=== PATIENT | male | born 1950 | race Caucasian/White ===

== ENCOUNTER 2016-12-23 18:19 | Outpatient (CLI) | payer MEDICARE, OTHER ==
[~2016-12-23] VITALS: Ht 175.3 cm; Wt 102.7 kg
[2016-12-23] MEDS ORDERED: NORMAL SALINE 500 ML IV SCH (18:24)
[2016-12-23] MEDS ORDERED: ACETAMINOPHEN 325 MG TABLET PO ONE (18:30)
[2016-12-23] MEDS ORDERED: DiphenhydrAMINE 25 MG CAPSULE PO ONE (18:30)
[2016-12-23 18:56] VITALS: Ht 175.3 cm; Wt 102.7 kg
--- NOTE | 2016-12-24 00:07 | NUR ---
DISMISSAL BLOOD TRANSFUSION COMPLETED WITH NO REACTION NOTED. IV WAS REMOVED WITH CATHETER TIP INTACT, AND SITE GAUZE AND COBAN WERE APPLIED TO SITE. PATIENT WAS ESCORTED VIA HOSPITAL MOTORIZED SCOOTER TO ED DOORS WHERE PATIENT AMBULATED WITH A STEADY GAIT USING HIS CANE TO HIS 'S PRIVATE VEHICLE.
== END 2016-12-24 00:10 | disposition home or self-care (01) ==
LOC: BLDTRN 18:19
PROVIDERS: ATTEND Internal Medicine Medical Oncology
DX: D64.9 Anemia, unspecified (principal)
CPT/HCPCS: 36415; 36430; 86850; 86900; 86901; 86922; A9270; P9040

== ENCOUNTER → 2016-12-23 | Outpatient (CLI) | payer MEDICARE, OTHER ==
[2016-12-23 17:40] LABS: BASOPHILS # (AUTO) 0.1 T/MM3 (0-0.2); BASOPHILS % (AUTO) 1.3 % (0-2); EOSINOPHILS # (AUTO) 0.1 T/MM3 (0-0.5); EOSINOPHILS % (AUTO) 0.9 % (0-4); HCT - HEMATOCRIT 24.9 % (41-53); HGB - HEMOGLOBIN 8.1 GM/DL (13.5-17.5); IMMATURE GRANULOCYTE # (AUTO) 0.06 T/MM3 (0.00-0.03); IMMATURE GRANULOCYTE % (AUTO) 0.6 % (0.0-0.5); LYMPHOCYTES # (AUTO) 1.3 T/MM3 (1-4.8); LYMPHOCYTES % (AUTO) 14.2 % (23-45); MEAN CORPUSCULAR HGB 28.7 UUG (26-34); MEAN CORPUSCULAR HGB CONC(MCHC 32.5 GM/DL (31-37); MEAN CORPUSCULAR VOLUME 88.3 UM3 (80-100); MEAN PLATELET VOLUME 9.1 UM3 (9.4-12.4); MONOCYTES # (AUTO) 0.8 T/MM3 (0-0.8); MONOCYTES % (AUTO) 8.9 % (0-9.0); NEUTROPHILS #(AUTO)-ABSOLUTE 6.9 T/MM3 (1.8-7.7); NEUTROPHILS % (AUTO) 74.1 % (33-66); RED BLOOD COUNT 2.82 M/MM3 (4.50-5.90); WBC - WHITE BLOOD COUNT 9.3 T/MM3 (4.5-11.0)
[2016-12-23 17:57] LABS: ALBUMIN 3.6 G/DL (3.5-5.0); ALBUMIN/GLOBULIN RATIO 1.2 RATIO (1.1-2.2); ALKALINE PHOSPHATASE 123 U/L (38-126); ALT (SGPT) 36 U/L (21-72); ANION GAP 14 MEQ/L (5-15); AST (SGOT) 38 U/L (17-59); BUN/CREATININE RATIO 23 RATIO (6-26); CALCIUM 9.5 MG/DL (8.4-10.2); CHLORIDE 99 MEQ/L (98-107); CO2 - CARBON DIOXIDE 25 MEQ/L (22-30); CREATININE 0.7 MG/DL (0.8-1.5); GLOMERULAR FILTRATION RATE 113; GLUCOSE 112 MG/DL (75-110); POTASSIUM 3.8 MEQ/L (3.6-5); SODIUM 138 MEQ/L (134-144); TOTAL PROTEIN 6.7 G/DL (6.3-8.2)
== END ==
LOC: LAB 17:26
PROVIDERS: ATTEND Internal Medicine Medical Oncology
DX: C34.11 Malignant neoplasm of upper lobe, right bronchus or lung (principal); R06.02 Shortness of breath
CPT/HCPCS: 36415; 80053; 82378; 85025

== ENCOUNTER → 2016-12-25 | Outpatient (CLI) | payer MEDICARE, OTHER ==
[~2016-12-25] MED LIST: ACET-2321 PO; ALBU8.5H INH; DEXA4TAB PO; DULO30CA52 PO; HYDR-4072 PO; MELO-267 PO; METH500T6 PO; RANI150T7 PO; ROPI2TAB2 PO; TAMS0.4C47 PO
--- NOTE | 2016-12-25 12:25 | DI ---
Indication: ITS.REASON: C34.11 LUNG CA; C79.51 BONE METS PROCEDURE: PET/CT SKULL TO THIGH/INITIAL: Encounter: Initial Comparison: None Technique: 14.8 mCi of F-18 FDG was administered intravenously via the right antecubital fossa. Approximately 60 minutes later 3D PET/CT imaging was performed from the skull base through the mid thighs. The CT images are for attenuation correction purposes only. Findings: No areas of abnormal tracer uptake within the skull base. There are scattered areas of intramuscular uptake of uncertain etiology. Hypermetabolic right upper lobe area of mass and associated consolidation with groundglass opacity is seen with an SUV max of 5.1. There is associated FDG avid mediastinal adenopathy. There is atelectasis of the right lower lobe and small right pleural effusion. No FDG avid masses seen within the left lung. Small to moderate pericardial effusion. Subcarinal adenopathy as well. Expected myocardial uptake. Metastasis involving the anterior left lobe of the liver with an SUV max of 6.7 seen at location -886.5. No additional discrete liver masses seen. There is mild heterogeneity of liver uptake diffusely. Uptake within the nodular left adrenal gland with an SUV max of 5.4. Expected genitourinary and bowel uptake. Small volume ascites. There is omental thickening with small omental metastatic implants seen in the ventral abdomen with mild FDG uptake. There are areas of abnormal skeletal uptake seen including the left intertrochanteric femur and acetabulum. Uptake in both pubic rami and right acetabular region. Diffuse uptake sacrum. Scattered areas of vertebral uptake throughout the spine. There is also uptake in the right glenoid and right humerus. Impression: 1. Widespread metastatic disease involving the mediastinum, skeleton, left adrenal and liver with peritoneal metastases and presumably malignant ascites. 2. Scattered areas of intramuscular uptake could be due to intramuscular metastases or possibly insulin. .
== END ==
LOC: IMA 09:04
PROVIDERS: ATTEND Internal Medicine Medical Oncology
DX: C34.11 Malignant neoplasm of upper lobe, right bronchus or lung (principal); C79.51 Secondary malignant neoplasm of bone; C78.1 Secondary malignant neoplasm of mediastinum; C78.7 Secondary malignant neoplasm of liver and intrahepatic bile duct; C79.72 Secondary malignant neoplasm of left adrenal gland; C78.6 Secondary malignant neoplasm of retroperitoneum and peritoneum
CPT/HCPCS: 78815; A9552

== ENCOUNTER 2016-12-30 12:52 | Inpatient (IN) | payer MEDICARE, OTHER ==
[~2016-12-30] VITALS: Ht 175.3 cm; Wt 98.3 kg
--- OUTSIDE RECORDS SUMMARY | 2016-12-30 12:57 | XMS REPORT | Continuity of Care Document ---
Author Author [facility] Organization [facility] Address Unknown Phone Unavailable Allergies Active Description Code Type Severity Reaction Onset Reported/Identified Relationship to Patient Clinical Status Yes No Known Allergies NKA Miscellaneous Allergy Unknown N/A 05/27/2015 Medications Problems Date Dx Coded Attending Type Code Diagnosis Diagnosed By 05/27/2015 Jamar Barry 162.3 05/27/2015 Jamar Barry 512.1 05/27/2015 Jamar Barry 786.6 05/27/2015 Jamar Barry E878.8 06/17/2015 Narendra London Z53.8 06/27/2015 Narendra London C34.90 06/27/2015 Narendra London R06.00 07/16/2015 Narendra London C34.90 07/16/2015 Narendra London R06.00 07/23/2015 Narendra London C34.90 07/23/2015 Narendra London R06.00 Procedures Results Encounters ACCT No. Visit Date/Time Discharge Status Pt. Type Provider Facility Loc./Unit Complaint [id number] 05/22/2015 17:14:00 05/22/2015 23 :59:59 CLS Outpatient
--- OUTSIDE RECORDS SUMMARY | 2016-12-30 12:57 | XMS REPORT | Continuity of Care Document ---
Author Author [facility] Organization [facility] Address Unknown Phone Unavailable Care Team Providers Care Elementary Secretary Name Role Phone [employer] [facility] Primary Care Physician [phone] Source Comments Some departments are not documenting in the electronic medical record. If you do not see the information that you expected, contact Release of Information in the Health Information Management department at [phone] for further assistance in locating additional records.[facility] Active Allergies and Adverse Reactions Allergen Noted Date Severity Reactions Comments Iodine 12/29/2011 SEE COMMENTS Lower body burning Iodine to contrast Current Medications Prescription Sig. Disp. Refills Start End Date Status Date atenolol (TENORMIN) 50 mg Take 50 mg by mouth Active tablet daily. atorvastatin (LIPITOR) 40 Take 40 mg by mouth at Active mg tablet bedtime daily. gabapentin (NEURONTIN) Take 300 mg by mouth Active 300 mg capsule twice daily. fentaNYL (DURAGESIC) 50 Apply 1 Patch to top of Active mcg/hr patch skin as directed every 72 hours. Active Problems Problem Noted Date Dysphagia, pharyngoesophageal phase 12/29/2011 Laryngopharyngeal reflux 12/29/2011 Social History Tobacco Use Types Packs/Day Years Used Date Current Every Day Smoker Cigarettes 1 50 Tobacco Cessation: Ready to Quit: No Comments: Alcohol Use Drinks/Week oz/Week Comments No Last Filed Vital Signs Vital Sign Reading Time Taken Blood Pressure 113/74 02/05/2012 12:45 PM CDT Pulse 60 02/05/2012 12:45 PM CDT Temperature 36.7 C (98.1 F) 02/05/2012 12:45 PM CDT Respiratory Rate - - Height 1.778 m (5' 10") 02/05/2012 12:45 PM CDT Weight 99.4 kg (219 lb 2.2 oz) 02/05/2012 12:45 PM CDT Body Mass Index 31.44 02/05/2012 12:45 PM CDT Oxygen Saturation 95% 02/05/2012 12:45 PM CDT Plan of Care Health Maintenance Due Date Last Done Comments Hepatitis C Screening 1950 Physical (Comprehensive) 1957 Exam Pertussis Vaccine 1961 Tetanus Vaccine 1967 Colorectal Cancer 01/08/2000 Screening Shingles Vaccine 2010 Abdominal Aortic Aneurysm 2015 Screening Prevnar/Pneumovax (#1) 2015 Influenza Vaccine 05/14/2017 Results from Last 3 Months Not on file
--- NOTE | 2016-12-30 13:00 | NUR ---
Arrival Patient arrived on unit at this time, accompanied by and grandson. Patient moved self from wheelchair to bed with minimal assistance. Patient oriented to unit. Will continue to monitor.
[2016-12-30 13:17] VITALS: Ht 175.3 cm; Wt 98.3 kg
[2016-12-30 13:20] VITALS: BP 136/77; PULSE 90; RESP 18; TEMP 96.7; O2SAT 90
[2016-12-30] MEDS ORDERED: ROPI2TAB2 PO (13:27)
[2016-12-30 13:28] VITALS: RESP 22
[2016-12-30 14:39] LABS: BASOPHILS # (AUTO) 0.2 T/MM3 (0-0.2); BASOPHILS % (AUTO) 1.9 % (0-2); EOSINOPHILS # (AUTO) 0.1 T/MM3 (0-0.5); HCT - HEMATOCRIT 28.1 % (41-53); HGB - HEMOGLOBIN 8.7 GM/DL (13.5-17.5); IMMATURE GRANULOCYTE # (AUTO) 0.06 T/MM3 (0.00-0.03); IMMATURE GRANULOCYTE % (AUTO) 0.6 % (0.0-0.5); LYMPHOCYTES # (AUTO) 1.2 T/MM3 (1-4.8); LYMPHOCYTES % (AUTO) 12.4 % (23-45); MEAN CORPUSCULAR HGB 27.2 UUG (26-34); MEAN CORPUSCULAR VOLUME 87.8 UM3 (80-100); MEAN PLATELET VOLUME 9.7 UM3 (9.4-12.4); MONOCYTES # (AUTO) 0.8 T/MM3 (0-0.8); MONOCYTES % (AUTO) 7.8 % (0-9.0); NEUTROPHILS #(AUTO)-ABSOLUTE 7.4 T/MM3 (1.8-7.7); NEUTROPHILS % (AUTO) 76.3 % (33-66); WBC - WHITE BLOOD COUNT 9.6 T/MM3 (4.5-11.0)
[2016-12-30] MEDS: ROPINIROLE 2 MG TABLET PO PRN (14:40)
--- NOTE | 2016-12-30 14:45 | DI ---
Indication: ITS.REASON: hypoxia, pleural effusion, lung ca PROCEDURE: CHEST 1 VIEW: Encounter: Initial Comparison: PET/CT dated December 25, 2016 Findings: Increasing moderate right pleural effusion. Hazy consolidation in the right lung, some of which relates to the known lung mass while other areas could be due to a superimposed pneumonia, atelectasis or aspiration. No pneumothorax. Left lung is clear. Heart size is obscured by the right effusion. Mediastinal contours are grossly normal. Pulmonary vascularity appears normal on the left. Impression: Increasing moderate right effusion. Superimposed atelectasis, pneumonia or aspiration cannot be excluded. .
[2016-12-30 14:48] LABS: ALBUMIN 3.2 G/DL (3.5-5.0); ALBUMIN/GLOBULIN RATIO 1.1 RATIO (1.1-2.2); ALKALINE PHOSPHATASE 168 U/L (38-126); ALT (SGPT) 65 U/L (21-72); ANION GAP 11 MEQ/L (5-15); AST (SGOT) 70 U/L (17-59); BUN/CREATININE RATIO 27 RATIO (6-26); CALCIUM 9.9 MG/DL (8.4-10.2); CHLORIDE 102 MEQ/L (98-107); CO2 - CARBON DIOXIDE 29 MEQ/L (22-30); CREATININE 0.9 MG/DL (0.8-1.5); GLOMERULAR FILTRATION RATE 84; GLUCOSE 122 MG/DL (75-110); POTASSIUM 3.8 MEQ/L (3.6-5); SODIUM 142 MEQ/L (134-144)
[2016-12-30] MEDS ORDERED: ACET-2321 PO (15:18)
[2016-12-30] MEDS ORDERED: MELO-267 PO (15:18)
[2016-12-30] MEDS ORDERED: DULO30CA52 PO (15:18)
[2016-12-30] MEDS ORDERED: ALBU8.5H INH (15:18)
[2016-12-30] MEDS ORDERED: METH500T6 PO (15:18)
[2016-12-30] MEDS ORDERED: TAMS0.4C47 PO (15:18)
--- NOTE | 2016-12-30 15:36 | HPPDOC ---
DIVINE VALDEZ V HAND WASHER 12/30/16 1521: HPI - Adult Date DATE: 12/30/16 TIME: 15:12 General Chief Complaint: Weakness, Shortness of breath, Anemia History of Present Illness Kenn is a pleasant 66 yr old male with known Lung cancer widespread metastatic disease. He has done all of his primary care management at [facility] in [place], however, he resides in [place], [place]. He was hospitalized at [facility] last month in November for Pneumonia and was found to have lung cancer. He does report that his primary care provider at [facility] has been watching a "spot" on his lung for numerous years, however, he has never had a biopsy until last month. While at [facility] he underwent a thoracentesis and had 1 liter drained off. He was discharged to follow-up with Dr. Miranda for further oncology evaluation and treatment. Patient reports he did see Dr. Miranda last week 12/23 and was found to be in anemic with hemoglobin of 8.1. At that time he received a blood transfusion. On 12/25 an outpatient PET scan was performed showing widespread metastatic disease involving the following, mediastinum, skeleton, left adrenal and liver with peritoneal metastasis and probable malignant ascites. He contacted Dr Dawson office today to report increased shortness of breath and weakness. The hospitalist services were contacted and accepted patient for direct admission for further evaluation and treatment. Past Medical History Past Medical History Metastatic lung cancer HTN "questionable" Coronary artery disease Chronic tobacco dependence History of significant chest trauma with pneumothorax, Right scapula fx Surgical History Patient's Surgical History: Right knee replacement Tonsillectomy Cardiac catheter- Current Medications Home Meds Reported Medications Tamsulosin HCl (Tamsulosin HCl) 0.4 Mg Cap.er.24h, 0.4 MG PO HS, CAP Take 1 capsule, by mouth, 1 time a day (at BEDTIME). 12/30/16 Methocarbamol (Methocarbamol) 500 Mg Tablet, 1 TAB PO QID 12/30/16 Meloxicam (Meloxicam) 15 Mg Tablet, 15 MG PO DAILY, TAB 12/30/16 Duloxetine HCl (Duloxetine HCl) 30 Mg Capsule.dr, 1 CAP PO BID, CAP 12/30/16 Albuterol Sulfate (Proair HFA 90 mcg/actuation) 8.5 Gm Hfa.aer.ad, 2 PUFF INH Q8H, INHALER 12/30/16 Acetaminophen (Tylenol) 325 Mg Tablet, 1-2 TAB PO QID, #60 TAB 2 Refills 12/30/16 Ropinirole HCl (Requip) 2 Mg Tablet, 2 MG PO TID Y for PRN ORDERS, TAB Take 1 tablet, by mouth, 3 times a day. 12/30/16 Allergies: Coded Allergies: No Known Allergies (Unverified , 12/30/16) Family History Family History: unknown Social History Smoking Status: Current every day smoker Substance Use Type: does not use Alcohol Intake: occasionally Marital Status: Sexuality: female partner Housing: house Current Occupational Status: retired () Advance Directives: Yes DPOA for Healthcare Only (Mishel Jones, ) Social History Comments Primary he care provider at [facility] in [place], [place] Oncology Dr. Miranda Review of Systems Constitutional: REPORTS: fatigue, weakness Cardiovascular dyspnea on exertion, paroxysmal nocturnal dysp Pulmonary Respiratory: cough, dyspnea, tachypnea Musculoskeletal General: pain (left hip pain) Physical Exam General General Nourishment: well nourished, well developed Vital Signs Vital Signs Date Time Temp Pulse Resp B/P Pulse Ox O2 Delivery O2 Flow Rate FiO2 12/30/16 13:28 22 12/30/16 13:20 96.7 90 136/77 90 Room Air Height (Feet): 5 Height (Inches): 9.00 Eyes Brief: FOUND: EOMI, PERRL ENMT Brief: FOUND: mucosa moist Neck Brief: FOUND: midline, NOT FOUND: adenopathy, carotid bruits, tracheal deviation Comments Course breath sounds Cardiovascular (brief) Cardiac Brief: FOUND: pedal edema (trace bilateral lower extremity), regular rate, regular rhythm, NOT FOUND: murmur Abdomen (brief) Abdominal Brief: FOUND: BS normo active x4, soft, NOT FOUND: distended, tender Neurologic (brief) Neurological Brief: FOUND: cranial 2-12 intact, motor (strength equal bilaterally 4 extremities), sensory (sensory intact all 4 extremities) Neurologic RN Documented GCS Eye Opening: Verbal: Motor: Total: Psychiatric (brief) FOUND: alert, attentive, normal affect, oriented Laboratory Laboratory Tests Test 12/30/16 14:19 White Blood Count 9.6T/MM3 Red Blood Count 3.20M/MM3 Hemoglobin 8.7GM/DL Hematocrit 28.1% Mean Corpuscular Volume 87.8UM3 Mean Corpuscular Hemoglobin 27.2UUG Mean Corpuscular Hemoglobin Concent 31.0GM/DL RDW Standard Deviation 54.7FL Platelet Count 364T/MM3 Mean Platelet Volume 9.7UM3 Immature Granulocyte % (Auto) 0.6% Neutrophils (%) (Auto) 76.3% Lymphocytes (%) (Auto) 12.4% Monocytes (%) (Auto) 7.8% Eosinophils (%) (Auto) 1.0% Basophils (%) (Auto) 1.9% Absolute Immature Granulocyte (auto 0.06T/MM3 Absolute Neutrophils (auto) 7.4T/MM3 Absolute Lymphocytes (auto) 1.2T/MM3 Absolute Monocytes (auto) 0.8T/MM3 Absolute Eosinophils (auto) 0.1T/MM3 Absolute Basophils (auto) 0.2T/MM3 Turbidity < 20 Sodium Level 142MEQ/L Potassium Level 3.8MEQ/L Chloride Level 102MEQ/L Carbon Dioxide Level 29MEQ/L Anion Gap 11MEQ/L Blood Urea Nitrogen 24.0MG/DL Creatinine 0.9MG/DL Glomerular Filtration Rate Calc 84 BUN/Creatinine Ratio 27RATIO Glucose Level 122MG/DL Calculated Osmolality 278MOSM/KG Calcium Level 9.9MG/DL Total Bilirubin 0.90MG/DL Icterus Index < 2 Aspartate Amino Transf (AST/SGOT) 70U/L Alanine Aminotransferase (ALT/SGPT) 65U/L Alkaline Phosphatase 168U/L Total Protein 6.0G/DL Albumin 3.2G/DL Globulin 2.8G/DL Albumin/Globulin Ratio 1.1RATIO Chemistry Specimen Hemolysis < 15 Assessment & Plan Problems: (1) Lung cancer Status: Acute Qualifiers: Lung location: unspecified part of lung (2) Metastatic bone tumor Status: Acute (3) Hypertension Status: Chronic (4) Tobacco dependence Status: Chronic Plan/Intensity of Service Patient to outpatient observation under the care of Dr. Payne for dyspnea, weakness Obtain the following laboratory studies on admission. CBC, CMP, urinalysis. Will obtain a 2 view chest x-ray to evaluate for effusion Oxygen saturation is borderline. However, patient does become moderately distressed with conversational dyspnea. Oxygen as needed to maintain adequate saturations greater than 92% With consultation to Dr. Miranda for further oncology evaluation and treatment. Patient does verbalize his wish to proceed with chemotherapy treatment or whatever recommendation as per oncology team. Half-normal saline at 100 ML per hour for gentle hydration. Patient may be up in room with assistance. Patient may have regular diet. SCDs to bilateral lower extremity for DVT prophylaxis Will discuss further plan of care with attending, Dr. Payne At time of discharge medical care will return to primary care provider at [facility] Code Status Hospital Course Summary Disclaimer The hospital course summary below is not to be considered part of the above Progress Note. Hospital Course Summary Patient to outpatient observation under the care of Dr. Payne for dyspnea, weakness Obtain the following laboratory studies on admission. CBC, CMP, urinalysis. Will obtain a 2 view chest x-ray to evaluate for effusion Oxygen saturation is borderline. However, patient does become moderately distressed with conversational dyspnea. Oxygen as needed to maintain adequate saturations greater than 92% With consultation to Dr. Miranda for further oncology evaluation and treatment. Patient does verbalize his wish to proceed with chemotherapy treatment or whatever recommendation as per oncology team. Half-normal saline at 100 ML per hour for gentle hydration. Patient may be up in room with assistance. Patient may have regular diet. SCDs to bilateral lower extremity for DVT prophylaxis Will discuss further plan of care with attending, Dr. Payne At time of discharge medical care will return to primary care provider at [facility] ABRAM,ESME Singh MD 12/30/16 0764: Past Medical History Current Medications Home Meds Reported Medications Tamsulosin HCl (Tamsulosin HCl) 0.4 Mg Cap.er.24h, 0.4 MG PO HS, CAP Take 1 capsule, by mouth, 1 time a day (at BEDTIME). 12/30/16 Methocarbamol (Methocarbamol) 500 Mg Tablet, 1 TAB PO QID 12/30/16 Meloxicam (Meloxicam) 15 Mg Tablet, 15 MG PO DAILY, TAB 12/30/16 Duloxetine HCl (Duloxetine HCl) 30 Mg Capsule.dr, 1 CAP PO BID, CAP 12/30/16 Albuterol Sulfate (Proair HFA 90 mcg/actuation) 8.5 Gm Hfa.aer.ad, 2 PUFF INH Q8H, INHALER 12/30/16 Acetaminophen (Tylenol) 325 Mg Tablet, 1-2 TAB PO QID, #60 TAB 2 Refills 12/30/16 Ropinirole HCl (Requip) 2 Mg Tablet, 2 MG PO TID Y for PRN ORDERS, TAB Take 1 tablet, by mouth, 3 times a day. 12/30/16 Allergies: Coded Allergies: No Known Allergies (Unverified , 12/30/16) Assessment & Plan Problems: (1) Dyspnea on exertion Status: Acute Assessment & Plan: Exertion limited to 5-10 steps (2) Lung cancer Status: Acute Qualifiers: Lung location: unspecified part of lung Assessment & Plan: Widely metastatic per verbal report Dr. Miranda-bone, liver, soft tissues (3) Metastatic bone tumor Status: Acute (4) Pleural effusion on right Status: Acute Assessment & Plan: Malignant (5) Restless leg syndrome (6) Hypertension Status: Chronic (7) Tobacco dependence Status: Chronic (8) Chronic back pain Status: Chronic Assessment & Plan: Related to service injury Assessment I have independently evaluated and examined this patient. I reviewed the chart, the patient's history, and the HAND WASHER's documented findings as above. We discussed and formulated the assessment and plan as above with additions as below: Mr. 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 He underwent thoracentesis of the right lung which provided very brief improvement in dyspnea. Thoracentesis was done 12 days ago and in the intervening time the patient has developed profound exertional dyspnea with exercise tolerance limited to 5-10 steps due to inability to breathe, dizziness, and hyperventilation. He's become wheelchair bound in the past week due to dyspnea. He was discharged home on oxygen and monitors his oxygen level reporting that it ranges from 84-96% on 4 L. Breathing treatments provided no improvement in symptoms and he denies fever or cough. Prior to 6 weeks ago the patient reports no difficulty with his breathing. The patient is appears dyspneic speaking and had to pause occasionally to recover before continuing history. He is alert and fully oriented. Cardiac rhythm is regular. Left lung field is clear, there is no bilateral wheezing, the right lung is dull to percussion 1[address] posteriorly and has diminished breath sounds the lower 2/3s of the lung. Liver is enlarged and approximate 2 finger breaths below the right costal margin , margin is tender. Patient moves all extremities well, sensation is intact 4. PA and lateral chest x-rays been reviewed by myself demonstrating moderate right pleural effusion and right upper lobe mass. Urine specific gravity is elevated suggesting dehydration, CPK [address] Miranda. Anticipate repeat thoracentesis tomorrow. Given rapid reaccumulation of fluid in the right chest may require pleurodesis or catheter placement. Patient is interested in initiation of chemotherapy which will be discussed further by Dr. Miranda. Complications of recent diagnosed cancer and functional limitations that have evolved patient will require inpatient management for stabilization. Greater than 2 days/night hospitalization anticipated. Plan/Intensity of Service Discussed with Dr. Miranda, chest x-ray reviewed by myself, laboratory data reviewed. CODE STATUS discussed. DIVINE VALDEZ APRN Dec 30, 2016 15:21 ESME PAYNE MD Dec 30, 2016 18:34
[2016-12-30 15:37] VITALS: BP 137/67; PULSE 95; RESP 17; TEMP 96.8; O2SAT 87
[2016-12-30 15:42] VITALS: O2SAT 91
[2016-12-30] MEDS: 1/2 NS 1,000 ML IV SCH (15:46)
--- NOTE | 2016-12-30 16:44 | DI ---
INDICATION: ITS.REASON: lung ca, pleural effusion PROCEDURE: CHEST 2-VIEWS UPRIGHT (PA \T\ LAT) Encounter: Initial COMPARISON: Chest x-ray from today at 1439 FINDINGS: Moderate right pleural effusion is unchanged. Right upper lobe mass is again seen. There is platelike atelectasis in the right lower lobe. Left lung is grossly clear. No pneumothorax. Mediastinal contours are unchanged. Impression: Stable appearance of the chest with a moderate right pleural effusion, likely malignant. .
[2016-12-30 17:07] LABS: BLOOD, URINE NEGATIVE (NEGATIVE); COLOR,URINE AMBER (YELLOW); LEUKOCYTE ESTERASE ,URINE NEGATIVE (NEGATIVE); NITRITE,URINE NEGATIVE (NEGATIVE)
[2016-12-30 17:14] LABS: BACTERIA,URINE TRACE (NEGATIVE); MUCUS,URINE PRESENT; RBC,URINE 0-1 /HPF (0-3)
[2016-12-30 17:15] LABS: SQUAMOUS EPITHELIAL CELL,UR 0-5
[2016-12-30] MEDS: METHOCARBAMOL 500 MG TABLET PO SCH ×2 (17:46→19:58)
--- NOTE | 2016-12-30 17:57 | NUR ---
Shift Summary Patient alert and oriented x3. VSS. On 4L NC, which patient states he is on at home. Patient states the oxygen does not make a difference because he breathes through his mouth. Patient's oxygen saturation 89-90% on RA before oxygen applied. Patient c/o chronic pain, [place] given. Patient is very fatigued, states it is difficult for him to even sit up on the edge of the bed. Refused dinner, states "it doesn't matter if I eat anymore and I'm not hungry." Patient voided once using urinal. IV infusing as ordered through right AC IV. Patient currently resting in bed. Will continue to monitor.
[2016-12-30] MEDS ORDERED: NICOTINE 21 MG PATCH TD PRN (18:30)
[2016-12-30] MEDS ORDERED: NICOTINE PATCH REMOVAL TD PRN (18:45)
--- NOTE | 2016-12-30 18:52 | CONSF ---
DATE OF CONSULTATION 12/30/2016 CHIEF COMPLAINT Shortness of breath and left hip pain. HISTORY OF PRESENT ILLNESS This is a 66-year-old male patient with a long-standing history of smoking and a lung nodule since 1991. The lung nodule was biopsied in 2014 with an inconclusive pathology. The patient was recommended to have lung surgery but he refused. He was treated at [facility] for pneumonia recently. His respiratory symptoms have gotten worse and he was transferred to [facility] for further management. CT scan showed right upper lobe consolidation, perihilar mass, subcarinal adenopathy in addition to moderate right-sided pleural effusion. He underwent thoracentesis. He underwent fiberoptic bronchoscopy with endobronchial ultrasound-guided needle biopsy, transbronchial biopsy and endobronchial biopsy, bronchial wash and cytology brushing on December 17, [address] Wali Corral at [facility]. He was noted to have an abnormal airway of the right mainstem bronchus with significant narrowing of the right upper lobe bronchus. Biopsy revealed [id number] carcinoma, adenocarcinoma type, moderately differentiated. I saw the patient in the office on December 23, 2016. His hemoglobin was 8.1. He was given 1 unit of packed red cells. The patient had an MRI on December 22, 2016 that demonstrated innumerable metastatic bony lesions scattered throughout the thoracolumbar spine and visualized sacrum. I ordered a PET scan which was done on December 25, 2016 which I reviewed personally with Dr. Hair Loera. The PET scan showed widely spread metastatic disease involving the mediastinum, skeleton, left adrenal gland and liver with peritoneal metastasis and presumably malignant ascites. There are areas of abnormal skeletal uptake seen including the left intertrochanteric femur and acetabulum. Uptake in both pubic rami and right acetabular region. Diffuse uptake in the sacrum. Scattered areas of vertebral uptake throughout the spine. There is also uptake in the right glenoid and right humerus. There are unusual scattered areas of intramuscular uptake which could be due to intramuscular metastasis. His CEA was elevated at 2740. He came today for followup, accompanied by his . He came in a wheelchair because of shortness of breath with minimal exertion. Also has pain in the left hip and lower back. PAST MEDICAL HISTORY 1. Chronic back pain. 2. Shingles in the lower back. 3. History of COPD, on albuterol. SOCIAL HISTORY He was a heavy smoker. He has good support from his family, the . MEDICATIONS Albuterol. Duloxetine. Meloxicam. Methocarbamol. ALLERGIES No known drug allergies. REVIEW OF SYSTEMS GENERAL: Very weak, tires easily. No fever. RESPIRATORY: Shortness of breath with minimal exertion. Dry cough. No hemoptysis. CARDIOVASCULAR: No chest pain. GASTROINTESTINAL: Abdominal discomfort and distention. No nausea or vomiting. Poor appetite. No constipation or diarrhea. SMALL MACHINE BINDERY OPERATOR: Headache and blurring of vision. PHYSICAL EXAMINATION GENERAL: He looks pale, not icteric. Performance status ECOG 2 mainly due to shortness of breath. LUNGS: Diminished air entry in the right lung base consistent with pleural effusion. CARDIOVASCULAR: Slightly tachycardic. No murmur or JVD. ABDOMEN: Slightly distended. Bowel sounds are positive. No organomegaly. EXTREMITIES: Trace edema. SMALL MACHINE BINDERY OPERATOR: No focal neurologic deficit. SKIN: He has a small area of rash in the lower back on the right side. It is from previous shingles. LYMPHATICS: No peripheral lymphadenopathy. ASSESSMENT 1. Very advanced [id number] lung cancer, adenocarcinoma type, with widely spread metastatic disease to the musculoskeletal system and abdomen. 2. Right pleural effusion, most likely malignant. 3. Symptomatic anemia of malignancy. 4. Bone pain due to bone metastasis. 5. Headache and blurring of vision. We need to rule out brain metastasis. RECOMMENDATIONS/PLAN 1. Blood transfusion as needed. 2. Chest x-ray. May need right thoracentesis. 3. I had a lengthy discussion with the patient and his , going over treatment options including supportive care only versus palliative chemotherapy. The patient opted for palliative chemotherapy. I have already ordered EGFR, ALK, ROS1, PD-L1 on the biopsy specimen, results pending. 4. Because the disease is very advanced and the patient is symptomatic we elected to go ahead with treating the patient with palliative chemotherapy, carboplatin and Taxol at a dose of 175 mg/m2 and carboplatin AUC of 5. Will obtain MRI of the brain and if the MRI of the brain is negative, will add Avastin to the chemotherapy. 6. Narcotics for pain control. Prognosis is guarded. MTDD
[2016-12-30 18:55] VITALS: O2SAT 92
[2016-12-30] MEDS: ALBUTEROL INH.SOLN. 2.5mg/3ml (0.083%) Neb. AEROSOL SCH (18:55)
[2016-12-30 19:48] VITALS: PULSE 99; RESP 20; O2SAT 92
[2016-12-30] MEDS: TAMSULOSIN 0.4 MG CAPSULE PO SCH (19:58)
[2016-12-30] MEDS: DULOXETINE 30 MG CAPSULE PO SCH (19:58)
--- NOTE | 2016-12-30 20:35 | NUR ---
Communication Mishel, pt's , called and inquired about the plan for the pt. Notified her about plans for the MRI and thoracentesis tomorrow.
--- NOTE | 2016-12-30 21:10 | CONSF ---
DATE OF CONSULTATION 12/30/2016 HISTORY OF PRESENT ILLNESS This patient is 66 years old. He has had a right lung nodule since 1991. The patient recently experienced worsening respiratory symptoms. He was admitted to [facility] in December [address] chest scan at [facility] showed right upper lobe consolidation, a perihilar mass, subcarinal lymphadenopathy and a moderate-sized right pleural effusion. The patient underwent a thoracentesis procedure. He did undergo flexible bronchoscopy with ultrasound-guided transbronchial needle biopsy and endobronchial washings, brushings and biopsies on 12/17/[address] Wali Corral at [facility]. Biopsies showed [id number] lung carcinoma (adenocarcinoma type). The patient underwent an MRI on 12/22/2016 which showed innumerable metastatic bony lesions scattered throughout the thoracolumbar spine and sacrum. The patient had an office visit with Dr. Miranda on 12/23/2016. The patient had a PET scan on 12/25/2016 which showed widespread metastatic disease involving the mediastinum, skeleton, left adrenal gland and liver with peritoneal metastases and malignant ascites. The patient has a CEA elevated at 2740. The patient was admitted to [facility] today because of increased shortness of breath and weakness. Chest x-ray performed today shows a moderate right pleural effusion. The patient was admitted by the hospitalist service. He was seen in consultation by Dr. Miranda. Dr. Miranda had a lengthy discussion with the patient and his today regarding treatment options. Treatment options of comfort care versus palliative chemotherapy were discussed. The patient did choose to proceed with palliative chemotherapy. Dr. Miranda plans to start some palliative chemotherapy by peripheral vein tomorrow. He has requested that the patient undergo implantation of a PowerPort Vascular Access Device during this hospitalization. Dr. Miranda also believes that the patient would benefit from a right thoracentesis. PHYSICAL EXAMINATION VITAL SIGNS: Temperature is 96.8 degrees oral. Pulse is 95. Respiratory rate is 17. Blood pressure is 137/67. Oxygen saturation is 87% on room air. Oxygen saturation is 92% on oxygen at 4 liters per minute by nasal cannula. CHEST: The patient does have decreased breath sounds at the right lung base. The patient has dullness to percussion at the right lung base. No wheezing. IMAGING DATA The patient had a chest x-ray performed at [facility] on 12/30/2016. This does show moderate right pleural effusion IMPRESSION 1. Advanced right pulmonary [id number]-lnpa lung cancer (adenocarcinoma type) with widespread metastatic disease. 2. Malignant right pleural effusion. 3. Dyspnea. PATIENT EDUCATION I did talk with the patient today about undergoing a thoracentesis procedure. I did describe this to the patient. He is very familiar with this since he did just have this performed last week. Expected benefits were reviewed. Alternatives were reviewed. Potential risks and complications were reviewed including bleeding and pneumothorax. I did also talk with the patient today about implantation of a PowerPort Vascular Access Device. I did explain the procedure to the patient [id number]. Expected benefits were reviewed. Alternatives were viewed. Potential risks and complications were also reviewed including anesthetic risk, bleeding, infection, and pneumothorax. Questions were solicited from the patient. He does appear to understand all this. He does wish to proceed with this. PLAN 1. The patient is scheduled to start receiving some palliative chemotherapy by peripheral vein tomorrow. 2. Ultrasound-guided right thoracentesis by Dr. Ramos. 2. Implantation of PowerPort Vascular Access Device. [facility]
--- NOTE | 2016-12-30 23:15 | NUR ---
Status Pt A/Ox3. In chronic back/leg pain, but did not want analgesics during the evening. Instructed pt to call when needing analgesics. Consent signed for thoracentesis and placed on front of chart. SOA with talking. In bed so far during shift. Dr. Rodarte and Dr. Ramos in to visit with patient in evening. Report given to SOLANGE Napoles.
[2016-12-31] VITALS (29 sets, daily range): BP systolic 97–153; BP diastolic 53–87; PULSE 88–108; RESP 10–22; TEMP 96–98.3; O2SAT 90–99
--- NOTE | 2016-12-31 00:05 | NUR ---
comfort awakened for VS, assessment. Pt. states he won't be able to go back to sleep. Also states back discomfort, requests pain med. Natasha given
[2016-12-31] MEDS: 1/2 NS 1,000 ML IV SCH ×3 (01:38→22:49)
[2016-12-31] MEDS: ALBUTEROL INH.SOLN. 2.5mg/3ml (0.083%) Neb. AEROSOL SCH ×3 (03:05→20:07)
--- NOTE | 2016-12-31 04:00 | NUR ---
rest sleeps restfully last several hours, resp. unlabored at rest. HOB elevated, repositions self for comfort
[2016-12-31] MEDS: ROPINIROLE 2 MG TABLET PO PRN ×2 (05:18→17:40)
--- NOTE | 2016-12-31 05:20 | NUR ---
comfort requests SCDs to be removed. requests Requip for restless legs, given with sm. amt. water
[2016-12-31 05:40] LABS: HCT - HEMATOCRIT 28.9 % (41-53); HGB - HEMOGLOBIN 8.9 GM/DL (13.5-17.5); MEAN CORPUSCULAR HGB 27.1 UUG (26-34); MEAN CORPUSCULAR HGB CONC(MCHC 30.8 GM/DL (31-37); MEAN CORPUSCULAR VOLUME 88.1 UM3 (80-100); MEAN PLATELET VOLUME 9.8 UM3 (9.4-12.4); RED BLOOD COUNT 3.28 M/MM3 (4.50-5.90)
[2016-12-31 05:44] LABS: INR 1.32 (0.76-1.04); PROTHROMBIN TIME 14.4 SEC (9.31-12.49)
[2016-12-31 05:49] LABS: ANION GAP 9 MEQ/L (5-15); BUN/CREATININE RATIO 31 RATIO (6-26); CALCIUM 9.7 MG/DL (8.4-10.2); CHLORIDE 101 MEQ/L (98-107); CO2 - CARBON DIOXIDE 29 MEQ/L (22-30); CREATININE 0.7 MG/DL (0.8-1.5); GLOMERULAR FILTRATION RATE 113; GLUCOSE 117 MG/DL (75-110); SODIUM 139 MEQ/L (134-144)
[2016-12-31 05:55] LABS: LDH 2713 U/L (313-618)
[2016-12-31 06:07] LABS: BAND NEUTROPHILS # 0.5 T/MM3; BASOPHILS # (MANUAL) 0.1 T/MM3 (0-0.2); EOSINOPHILS # (MANUAL) 0.1 T/MM3 (0-0.5); LYMPHOCYTES # (MANUAL) 0.8 T/MM3 (1-4.8); MONOCYTES # (MANUAL) 0.7 T/MM3 (0-0.8); NEUTROPHILS #(MANUAL)-ABSOLUTE 7.8 T/MM3 (1.8-7.7); TOTAL CELLS COUNTED 100 %
--- NOTE | 2016-12-31 06:20 | NUR ---
comfort states continued LE and back pain, [place] given
[2016-12-31] MEDS: DULOXETINE 30 MG CAPSULE PO SCH ×2 (07:58→21:00)
[2016-12-31] MEDS: METHOCARBAMOL 500 MG TABLET PO SCH ×4 (07:58→21:00)
[2016-12-31] MEDS ORDERED: GADOBUTROL 10mMol/10ml INJECTION IV ONE (10:41)
[2016-12-31] MEDS ORDERED: SALINE FLUSH 10ml SYRINGE ONE ×3 (10:41→14:46)
[2016-12-31] MEDS ORDERED: HYDROMORPHONE 2mg/ml INJECTION IM ONE (11:15)
--- NOTE | 2016-12-31 11:21 | NUR ---
MRI Pt down to MRI at 1100. After laying on table, pt having anxiety with breathing. 1x order to give 0.5 dilaudid to help. Pt stating its helping, MRI will try to get images. If not will try after thoracentesis after 1200.
[2016-12-31] MEDS ORDERED: HYDROMORPHONE 2mg/ml INJECTION IV ONE (11:30)
--- NOTE | 2016-12-31 11:53 | PNPDOC ---
MIKEY HINOJOSA SKIN PASS OPERATOR 12/31/16 1153: Subjective Date DATE: 12/31/16 TIME: 11:53 Reclining in hospital bed, alone in room at beginning of intake. , daughter arrive later. Reports intermittent headache and vision changes "see spots." Denies headache currently. Decreased appetite, reports a 15 pound weight loss in the past month. Shortness of air with exertion, denies cough or chest pain currently. No nausea or vomiting. Chronic constipation, no BM since admit. Voiding normally General: No fever, no night sweats Eyes: "see spots" denies diplopia ENT: No mouth sores, no trouble swallowing Cardiac: No chest pain no palpitations Pulmonary: Positive shortness of air. Denies cough Abdomen: No pain, no nausea vomiting, no diarrhea. Chronic constipation : No urgency, frequency, dysuria, or hematuria Musculoskeletal: Complains of left shoulder discomfort intermittently and back pain intermittently Neurological: Intermittent headache, denies headache currently. No focal weakness Skin: No rash, no sores Psychiatric: No anxiety, no depression Objective Vital Signs Vital Signs 12/31/16 12/31/16 12/31/16 12/31/16 00:00 03:00 03:00 03:09 Temp 98.2 Pulse 108 103 106 Resp 20 18 B/P 138/69 Pulse Ox 92 93 O2 Delivery Nasal Cannula O2 Flow Rate 4.00 12/31/16 12/31/16 07:48 11:20 Temp 97.7 Pulse 96 Resp 20 20 B/P 133/66 Pulse Ox 95 O2 Delivery Nasal Cannula O2 Flow Rate 4.00 Height (Feet): 5 Height (Inches): 9.00 Weight (Kilograms): 99.800 General Alert, Orientated x 3, No Acute Distress Eyes (Brief) Eyes: FOUND: PERRL, NOT FOUND: scleral icterus Respiratory (Brief) Respiratory: FOUND: other (coarse rhonchi bilaterally), NOT FOUND: wheezes Cardiovascular (Brief) Cardiac: FOUND: regular rate, regular rhythm, NOT FOUND: pedal edema Abdomen (Brief) Abdominal: FOUND: BS normo active x4, other (discrete masses appreciated bilateral upper quadrants), soft, tender (mild tenderness with exam) Musculoskeletal (Brief) FOUND: other (moves all 4 extremities equally), NOT FOUND: deformity, loss of motion Neurologic (Brief) FOUND: cranial 2-12 intact, NOT FOUND: motor (no acute motor deficit) Psychiatric (Brief) FOUND: alert, attentive, normal affect, oriented Laboratory Laboratory Tests Test 12/30/16 14:17 12/30/16 14:19 12/30/16 16:57 12/31/16 05:10 Total Creatine Kinase 40U/L Troponin I 0.048ng/ml Chemistry Specimen Hemolysis < 15 < 15 < 15 White Blood Count 9.6T/MM3 10.0T/MM3 Red Blood Count 3.20M/MM3 3.28M/MM3 Hemoglobin 8.7GM/DL 8.9GM/DL Hematocrit 28.1% 28.9% Mean Corpuscular Volume 87.8UM3 88.1UM3 Mean Corpuscular Hemoglobin 27.2UUG 27.1UUG Mean Corpuscular Hemoglobin Concent 31.0GM/DL 30.8GM/DL RDW Standard Deviation 54.7FL 53.7FL Platelet Count 364T/MM3 370T/MM3 Mean Platelet Volume 9.7UM3 9.8UM3 Immature Granulocyte % (Auto) 0.6% % Neutrophils (%) (Auto) 76.3% % Lymphocytes (%) (Auto) 12.4% % Monocytes (%) (Auto) 7.8% % Eosinophils (%) (Auto) 1.0% % Basophils (%) (Auto) 1.9% % Absolute Immature Granulocyte (auto 0.06T/MM3 T/MM3 Absolute Neutrophils (auto) 7.4T/MM3 T/MM3 Absolute Lymphocytes (auto) 1.2T/MM3 T/MM3 Absolute Monocytes (auto) 0.8T/MM3 T/MM3 Absolute Eosinophils (auto) 0.1T/MM3 T/MM3 Absolute Basophils (auto) 0.2T/MM3 T/MM3 Turbidity < 20 < 20 Sodium Level 142MEQ/L 139MEQ/L Potassium Level 3.8MEQ/L 4.0MEQ/L Chloride Level 102MEQ/L 101MEQ/L Carbon Dioxide Level 29MEQ/L 29MEQ/L Anion Gap 11MEQ/L 9MEQ/L Blood Urea Nitrogen 24.0MG/DL 22.0MG/DL Creatinine 0.9MG/DL 0.7MG/DL Glomerular Filtration Rate Calc 84 113 BUN/Creatinine Ratio 27RATIO 31RATIO Glucose Level 122MG/DL 117MG/DL Calculated Osmolality 278MOSM/KG 272MOSM/KG Calcium Level 9.9MG/DL 9.7MG/DL Total Bilirubin 0.90MG/DL Icterus Index < 2 < 2 Aspartate Amino Transf (AST/SGOT) 70U/L Alanine Aminotransferase (ALT/SGPT) 65U/L Alkaline Phosphatase 168U/L Total Protein 6.0G/DL Albumin 3.2G/DL Globulin 2.8G/DL Albumin/Globulin Ratio 1.1RATIO Urine Collection Type Cleancatch-midstream Urine Color May Urine Turbidity Clear Urine pH 5.0 Urine Specific [place] >=1.030 Urine Protein 1+ Urine Glucose (UA) Negative Urine Ketones Negative Urine Blood Negative Urine Nitrite Negative Urine Bilirubin 1+ Urine Urobilinogen 2.0EU/DL Urine Leukocyte Esterase Negative Urine RBC 0-1/HPF Urine WBC 3-5/HPF Urine Squamous Epithelial Cells 0-5 Urine Bacteria Trace Urine Fatty Casts /LPF Urine Hyaline Casts 1-3/LPF Urine Mucus Present Urine Culture Indicated Cult not indicated Neutrophils % (Manual) 78.0% Band Neutrophils % 5.0% Lymphocytes % (Manual) 8.0% Monocytes % (Manual) 7.0% Eosinophils % (Manual) 1.0% Basophils % (Manual) 1.0% Absolute Neutrophils (Manual) 7.8T/MM3 Band Neutrophils # 0.5T/MM3 Lymphocytes # (Manual) 0.8T/MM3 Monocytes # (Manual) 0.7T/MM3 Eosinophils # (Manual) 0.1T/MM3 Basophils # (Manual) 0.1T/MM3 Red Cell Morphology Comment Normal Prothromb Time International Ratio 1.32 Lactate Dehydrogenase 2713U/L Radiology Date of exam 12/31/16 Type of exam: MRI brain with/without contrast Impression: Right occipital and subcortical left frontal lobe metastasis Assessment & Plan Assessment 1. Advanced non-small cell lung cancer, adenocarcinoma type with widespread metastatic disease, newly diagnosed 2. Right pleural effusion. Status post right thoracentesis by Dr. Ramos today 3. Anemia of malignancy Plan/Intensity of Service 1.Dr. Bunn saw patient earlier and reviewed findings of MRI of brain and recommended treatment. I reviewed palliative chemotherapy with weekly Taxol and carboplatin and informed later may add Avastin. Chemotherapy treatment information reviewed with patient, including what do I need to know before starting treatment, what are potential side effects, how is the treatment given. Following discussion, patient had no questions. and daughter arrived and reviewed treatment, MRI of brain findings, and that Dr. Bunn saw patient earlier and he will return tomorrow. At this time they have no questions. Discussed stopping smoking with patient and he accepts the stop smoking information. Continue supportive care and close monitoring for toxicity related to chemotherapy Code Status Full Code Hospital Course Summary Disclaimer The visit summary below is not to be considered part of the above Progress Note. Hospital Course Summary Patient to outpatient observation under the care of Dr. Payne for dyspnea, weakness Obtain the following laboratory studies on admission. CBC, CMP, urinalysis. Will obtain a 2 view chest x-ray to evaluate for effusion Oxygen saturation is borderline. However, patient does become moderately distressed with conversational dyspnea. Oxygen as needed to maintain adequate saturations greater than 92% With consultation to Dr. Miranda for further oncology evaluation and treatment. Patient does verbalize his wish to proceed with chemotherapy treatment or whatever recommendation as per oncology team. Half-normal saline at 100 ML per hour for gentle hydration. Patient may be up in room with assistance. Patient may have regular diet. SCDs to bilateral lower extremity for DVT prophylaxis Will discuss further plan of care with attending, Dr. Payne At time of discharge medical care [facility] [place] 12/31/16 1745: Objective Radiology DATE OF EXAM: 12/31/16 ORDERING DOCTOR: ESME PAYNE MD TYPE OF EXAM: CTA PULMONARY EMBOLI REASON FOR EXAM: Cr 0.7 Indication: ITS.REASON: Dyspnea, history of metastatic cancer PROCEDURE: CTA PULMONARY EMBOLI: Encounter: Initial Comparison: Chest x-ray from today Technique: Axial CT pulmonary angiographic phase images were performed through the chest after the administration of intravenous contrast. Coronal and Sagittal MIP reconstructed images were created and reviewed. Automated Exposure Control and Iterative Reconstruction dose reducing techniques were utilized. Contrast: Omnipaque 350 70 mL Findings: Pulmonary arteries: Exam is diagnostic to the interlobar pulmonary arterial level. No large or central pulmonary embolus seen. The segmental and subsegmental pulmonary arterial branches cannot be well evaluated due to contrast bolus admixture and timing. Other findings: No pneumothorax. There is patchy groundglass opacity in the right apex. Right upper lobe mass along the major fissure is again seen. There is atelectasis involving most of the right middle and a large portion of the right lower lobe. Small right pleural effusion. Mild left lower lobe atelectasis. The central airways appear patent. Mildly enlarged right axillary lymph node measuring 1.4 cm in short axis. Enlarged right paratracheal node measuring 2.5 cm short axis dimension. Additional prevascular and paratracheal adenopathy along with right hilar adenopathy. Heart is normal in size with a moderate pericardial effusion. Liver is slightly nodular in contour which could be due to cirrhosis. No acute findings in the upper abdomen. Left adrenal presumed metastasis. Impression: 1. No large or central pulmonary embolus. Smaller peripheral pulmonary emboli cannot be excluded. 2. Large areas of right middle and right lower lobe atelectasis with right upper lobe malignancy. 3. Metastatic adenopathy. . Assessment & Plan Assessment Patient examined, chart reviewed, case discussed with Dr. Esperanza Gaitan and Dr. Miranda. MRI of the brain reviewed with Dr. Hair Loera. LDH is elevated at 2700. CEA is elevated at 2740. Pathology from [place] shows a CK 7 positive CK 56 positive TTF-1 negative adenocarcinoma consistent with lung or upper GI origin. He has a large lung mass and this probably reflects primary bronchogenic lung cancer non-small cell. Because of the brain metastasis will need to consider radiation therapy to the brain and may need palliative radiation therapy to area of bony metastasis. Because of the potential for radiation and interaction, paclitaxel as a radiation business process specialist Dr. Miranda and I decided to go with weekly therapy. We'll use weekly doses of paclitaxel 80 mg/ m this week along with oral benton an AUC of 2 this week and consider changing the paclitaxel dose in concurrent radiation therapy. We'll need to watch for tumor lysis. I discussed the risks benefits and side effects of chemotherapy with the patient and he also had education with Fernanda Hinojsoa regarding these drugs. He wishes to proceed. IV access is a problem and he will need a Port-A-Cath. Will ask Dr. Ramos to assist with this during this hospitalization. Plan/Intensity of Service Chemotherapy this evening Watch for tumor lysis Supportive care Radiation therapy to the brain Consider radiation therapy to any bone lesions that are at risk of fracture Consider skeletal survey to evaluate bone lesions more thoroughly Port-A-Cath placement MIKEY HINOJOSA APRN Dec 31, 2016 11:53 SALO BUNN Dec 31, 2016 17:45
--- NOTE | 2016-12-31 12:37 | DI ---
Indication: ITS.REASON: Lung cancer, headache PROCEDURE: MRI BRAIN W/WO CONTRAST: Encounter: Initial Comparisons: PET/CT dated December 25, 2016 Technique: Multiplanar, multisequence, MR imaging of the head with and without contrast was acquired. Contrast: 9.5 mL of Gadavist FINDINGS: Motion artifact limits the exam. There is a focal T2 hyperintense enhancing lesion in the right occipital lobe measuring 0.8 cm in diameter on axial image #13. There is an additional area of gyriform enhancement in the left anterior frontal lobe best seen on postcontrast axial image #16 and coronal images 24 and 25. This area measures 1.4 x 1.5 cm in diameter. No additional enhancing masses identified. There is mild surrounding vasogenic edema. The ventricles are of normal size, shape, and contour for the patient's age. There are small nonspecific punctate areas of T2-weighted and T2 FLAIR weighted signal abnormality in the deep frontoparietal white matter that most likely represent small vessel ischemic disease. This is of a degree that is considered to be normal for the patient's age. The brain stem, cerebellum, and cerebral hemispheres otherwise have a normal morphologic appearance as well as MR signal intensity on all pulse sequences. There are no areas of restricted diffusion to suggest an acute infarct. There is no evidence of an intracranial hemorrhage or hydrocephalus. The visualized portions of the orbits, calvarium, paranasal sinuses, and skull base demonstrate no significant abnormality. IMPRESSION: Right occipital and subcortical left frontal lobe metastases. .
--- NOTE | 2016-12-31 12:44 | DI ---
Indication: ITS.REASON: THORACENTESIS PROCEDURE: US THORACENTESIS Encounter: Initial Comparison: Chest x-ray from yesterday Findings/ Impression: Ultrasound guidance was performed to assist Dr. Ramos performing a right-sided thoracentesis. Preprocedure imaging shows a moderate amount of right pleural fluid. Postprocedure imaging shows no significant residual pleural fluid. Reportedly 800 mL was removed during the procedure. .
--- NOTE | 2016-12-31 12:56 | DI ---
Indication: ITS.REASON: post thoracentesis PROCEDURE: CHEST 1 VIEW: Encounter: Initial Comparison: December 30, 2016 Findings: There is no visible pneumothorax following right-sided thoracentesis. There is continued opacification of the right mid to lower lung field. It is difficult to determine on this exposure how much of this represents consolidated lung versus residual fluid. There is continued patchy airspace consolidation in the remaining aerated portions of the right lung. Left lung appears grossly clear. Left heart border and mediastinal contour are unchanged. Impression: No visible pneumothorax following right thoracentesis. .
--- NOTE | 2016-12-31 12:57 | GSPOSTPROC ---
Immediate Operative Note DATE: 12/31/16 TIME: 12:56 Postop Diagnosis: Right pleural effusion Surgical Procedure: Other (Right thoracentesis.) Surgeon: DION Boles MD Dec 31, 2016 12:57
--- NOTE | 2016-12-31 13:23 | NUR ---
jacinda Pt went from MRI to sono for thoracentesis, no other meds given, pt tolerated well. X-ray taken, 800ml out.
[2016-12-31] MEDS ORDERED: IOHEXOL 350 MG/ML 75ml INJECTION ONE (14:45)
[2016-12-31] MEDS ORDERED: NORMAL SALINE 100 ML ONE (14:46)
--- NOTE | 2016-12-31 14:56 | NUR ---
CM CM IN ROOM VISITS WITH PT AND SON. CM EXPLAINS ROLE AND UPDATED WHITEBOARD. PT DENIES HOME NEEDS AT THIS TIME AND IS AWARE TO CONTACT CM SHOULD NEEDS ARISE.
--- NOTE | 2016-12-31 16:22 | DI ---
Indication: ITS.REASON: Dyspnea, history of metastatic cancer PROCEDURE: CTA PULMONARY EMBOLI: Encounter: Initial Comparison: Chest x-ray from today Technique: Axial CT pulmonary angiographic phase images were performed through the chest after the administration of intravenous contrast. Coronal and Sagittal MIP reconstructed images were created and reviewed. Automated Exposure Control and Iterative Reconstruction dose reducing techniques were utilized. Contrast: Omnipaque 350 70 mL Findings: Pulmonary arteries: Exam is diagnostic to the interlobar pulmonary arterial level. No large or central pulmonary embolus seen. The segmental and subsegmental pulmonary arterial branches cannot be well evaluated due to contrast bolus admixture and timing. Other findings: No pneumothorax. There is patchy groundglass opacity in the right apex. Right upper lobe mass along the major fissure is again seen. There is atelectasis involving most of the right middle and a large portion of the right lower lobe. Small right pleural effusion. Mild left lower lobe atelectasis. The central airways appear patent. Mildly enlarged right axillary lymph node measuring 1.4 cm in short axis. Enlarged right paratracheal node measuring 2.5 cm short axis dimension. Additional prevascular and paratracheal adenopathy along with right hilar adenopathy. Heart is normal in size with a moderate pericardial effusion. Liver is slightly nodular in contour which could be due to cirrhosis. No acute findings in the upper abdomen. Left adrenal presumed metastasis. Impression: 1. No large or central pulmonary embolus. Smaller peripheral pulmonary emboli cannot be excluded. 2. Large areas of right middle and right lower lobe atelectasis with right upper lobe malignancy. 3. Metastatic adenopathy. .
--- NOTE | 2016-12-31 16:30 | CONSPD ---
Consultation Date DATE: 12/31/16 TIME: 16:17 66-year old gentleman with a history of a lung nodule biopsied in 2015 with inconclusive findings. Resection was recommended, however patient refused. He has been treated multiple times for pneumonia and increasing shortness of breath. Most recent CT showed right upper lobe consolidation, perihilar mass, subcarinal adenopathy, and right sided pleural effusion. He was admitted at [facility] with acute respiratory failure. A fiberoptic bronchoscopy on 12/17/16 showed a narrowing of the right mainstem bronchus, right upper lobe bronchus. Brushings and biopsies were done through ultrasound guidance in eileen stations 4R and 7R. Pathology was positive for adenocarcinoma , grade II. Right thoracentesis was done on 12/18/16 with removal of 800 cc. Patient is presently on continuous oxygen. MRI of lumbar spine on 12/22 showed innumerable metastases, most prominent L3-L4, L4-L5, L5-S1. PET scan done on showed widespread metastases involving lung/mediastinum, skeleton, left adrenal gland, liver, peritoneum, and malignant ascites. CEA reported at 2740. There could also be subcutaneous or intramuscular metastases. A MRI done on showed a right occipital and left subcortical frontal metastases measuring 8 mm and 15 mm respectively. Impression: Patient has overwhelming metastatic disease with various symptomatic areas secondary to involvement. Radiation in this instance can be used as a palliative modality addressing any site including the brain as a palliative tool. I discussed different possible scenarios with the family and the patient as well as the role of radiation in his disease as being adjuvant to the systemic treatment. Timing of radiation will be determined based on his response and acute needs. BEKA MONTANEZ MD Dec 31, 2016 16:29
[2016-12-31] MEDS ORDERED: FAMOTIDINE 20mg IVPB 50 ML IV ONE (17:30)
[2016-12-31] MEDS ORDERED: HYDROCORTISONE 100mg/2ml Injection IV PRN (17:30)
[2016-12-31] MEDS ORDERED: DEXAMETHASONE 10 MG in NORMAL SALINE 50 ML IV ONE (17:30)
[2016-12-31] MEDS ORDERED: DiphenhydrAMINE 50 MG/ML INJECTION IV PRN (17:30)
[2016-12-31] MEDS ORDERED: PALONOSETRON 0.25mg/5ml INJECTION IV ONE (17:30)
--- NOTE | 2016-12-31 17:32 | PNPDOC ---
Subjective Date DATE: 12/31/16 TIME: 17:20 Subjective Mr. Jones was seen with several family members the bedside. He reports he is feeling better after thoracentesis and removal of 800 mL fluid. He indicated he felt he could lie flat for CT angiogram today. Hip and back pain are unchanged from baseline. Lightheadedness has resolved compared to yesterday after thoracentesis and he denied cough, palpitations, nausea, or heartburn. He spoke with Dr. Miranda regarding palliative chemotherapy yesterday and plans to proceed. Objective Vital Signs Vital signs Vital Signs Date Time Temp Pulse Resp B/P Pulse Ox O2 Delivery O2 Flow Rate FiO2 12/31/16 16:11 96.7 95 18 135/69 98 Nasal Cannula 5.00 EXAM General-NAD, alert, head of bed raised approximate 40 HEENT-conjunctiva clear, sclera anicteric, conjugate gaze Lungs-respirations nonlabored with good airflow, breath sounds are coarse in the right upper anterior field and at the base laterally and posteriorly on the right. Air flow is improved at the right base compared to admission. Left lung clear. Cardiac-regular rhythm, S1-S2 Abd-soft, nontender, bowel sounds present Ext-trace bilateral lower extremity edema Neuro-moving upper extremities well (grandchild sitting on his legs-not examined ) Psych-alert, fully oriented Height (Feet): 5 Height (Inches): 9.00 Weight (Kilograms): 99.800 Laboratory Laboratory Laboratory Tests 12/30/16 14:19 12/31/16 05:10 Laboratory Tests 12/30/16 14:19 12/31/16 05:10 CPK again low at 25, LDH 2713 Radiology Right brain reviewed demonstrating small metastatic lesion in the right cerebellum and a larger area of edema in the left frontal lobe. Post thoracentesis chest x-ray without evidence of pneumothorax, right base largely obscured. Assessment & Plan Problems: (1) Dyspnea on exertion Status: Acute Assessment & Plan: Exertion limited to 5-10 steps (2) Lung cancer Status: Acute Qualifiers: Lung location: unspecified part of lung Assessment & Plan: Widely metastatic per verbal report Dr. iMranda-bone, liver, soft tissues, brain (3) Metastatic bone tumor Status: Acute (4) Pleural effusion on right Status: Acute Assessment & Plan: Malignant (5) Restless leg syndrome (6) Hypertension Status: Chronic (7) Tobacco dependence Status: Chronic (8) Chronic back pain Status: Chronic Assessment & Plan: Related to service injury (9) Normocytic anemia Status: Chronic Assessment Treatment plans briefly reviewed with Dr. Miranda yesterday, additionally discussed with Dr. Ramos last night. Port-A-Cath to be placed in the morning. Palliative chemotherapy with Taxol and carboplatin being initiated. Radiation therapy consulted. CTA of chest be obtained to exclude PE as contributing to patient's exertional dyspnea-symptoms seem excessive relative to pleural fluid volume. Blood pressure stable, oxygenating well on 5 L supplemental O2. Continue supportive care. Plan/Intensity of Service Discussed with nursing/family, MRI brain reviewed by myself, laboratory data reviewed. High-risk medications in use. CTA ordered. Code Status Full Code Hospital Course Summary Disclaimer The hospital course summary below is not to be considered part of the above Progress Note. Hospital Course Summary Patient to outpatient observation under the care of Dr. Payne for dyspnea, weakness Obtain the following laboratory studies on admission. CBC, CMP, urinalysis. Will obtain a 2 view chest x-ray to evaluate for effusion Oxygen saturation is borderline. However, patient does become moderately distressed with conversational dyspnea. Oxygen as needed to maintain adequate saturations greater than 92% With consultation to Dr. Miranda for further oncology evaluation and treatment. Patient does verbalize his wish to proceed with chemotherapy treatment or whatever recommendation as per oncology team. Half-normal saline at 100 ML per hour for gentle hydration. Patient may be up in room with assistance. Patient may have regular diet. SCDs to bilateral lower extremity for DVT prophylaxis Will discuss further plan of care with attending, Dr. Payne At time of discharge medical care will return to primary care provider at [place] 12/31/16 Treatment plans briefly reviewed with Dr. Miranda yesterday, additionally discussed with Dr. Ramos last night. Port-A-Cath to be placed in the morning. Palliative chemotherapy with Taxol and carboplatin being initiated. Radiation therapy consulted. CTA of chest be obtained to exclude PE as contributing to patient's exertional dyspnea-symptoms seem excessive relative to pleural fluid volume. Blood pressure stable, oxygenating well on 5 L supplemental O2. Continue supportive care. ESME PAYNE MD Dec 31, 2016 17:24
[2016-12-31] MEDS ORDERED: PACLITAXEL IV ONE (18:00)
[2016-12-31] MEDS ORDERED: NORMAL SALINE IV ONE ×2 (18:00→21:15)
[2016-12-31] MEDS ORDERED: DiphenhydrAMINE 50 MG/ML INJECTION IV ONE (18:00)
--- NOTE | 2016-12-31 18:27 | NUR ---
meds Pre meds for chemo given after new IV site started. Pt tolerating them well, sleeping. IV patent and flushing.
--- NOTE | 2016-12-31 19:12 | NUR ---
chemo Taxol started at 1900. Pre meds finished and pt sleeping. To be run over 3hr, set at 80/hr, filter in place, IV flushing.
--- NOTE | 2016-12-31 19:14 | NUR ---
status Pt A/O x3, V/S stable on 5L, will be able to wean down. Pt ambulating with 1x assist. Urine output good for shift, no BM. Tolerated well his CT this evening, IV site went bad after returning. Pt had small amt of dinner, not hungry, will be NPO after midnight for procedure. Consent needs to signed, pt was falling a sleep after pre meds, let on coming RN know if he is a wake to get or do tomorrow am.
[2016-12-31] MEDS: TAMSULOSIN 0.4 MG CAPSULE PO SCH (21:00)
--- NOTE | 2016-12-31 21:07 | PROCEDUREF ---
DATE OF PROCEDURE 12/31/2016 DIAGNOSIS BEFORE PROCEDURE Right pleural effusion. DIAGNOSIS AFTER PROCEDURE Right pleural effusion. PROCEDURE Ultrasound-guided right thoracentesis. SURGEON Atilio Ramos MD ANESTHESIA Local FINDINGS This patient did have a moderate sized right pleural effusion. This was demonstrated by a chest x-ray performed on 12/30/2016. This was also demonstrated by chest sonography performed immediately before the procedure. The pre-procedure sonogram did show a moderate amount of right pleural fluid. The patient did have a total of 800 mL of fluid removed from the right pleural space at thoracentesis today. The pleural effusion fluid was serous and had a yellow color. The fluid did not appear purulent. The fluid did not appear milky. The fluid did not appear bloody. Chest sonography performed after right thoracentesis showed no significant residual pleural fluid. Chest x-ray performed after thoracentesis did show reduction of the right pleural effusion. There was no pneumothorax demonstrated by the chest x-ray performed after right thoracentesis. The patient does have some continued opacification of the right mid and lower lung goodwin demonstrated on the chest x-ray. DESCRIPTION OF PROCEDURE The patient was placed in a sitting position on a cart in the endoscopy room at [facility]. Chest sonography of the right pleural cavity was performed immediately before the procedure. A site for thoracentesis was selected with use of the ultrasound machine. The site was marked on the right posterior chest wall with a skin marker pen. The right posterior chest wall was prepped with ChloraPrep. Sterile drapes were placed. The skin, subcutaneous tissue, chest wall and parietal pleura were infiltrated with 1% Xylocaine without epinephrine at the thoracentesis site. A Collusion brand thoracentesis kit was used. A small incision was made in the skin with scalpel at the thoracentesis site. The thoracentesis catheter was introduced through the chest wall into the pleural space at the thoracentesis site. Pleural effusion fluid was able to be aspirated out of the pleural space as soon as the catheter was advanced through the chest wall into the pleural space. The metal needle was withdrawn from the thoracentesis catheter and the catheter was advanced further into the pleural space. A total of 800 mL of pleural effusion fluid was aspirated from the right pleural space with a syringe. This was continued until no further fluid could be aspirated. The thoracentesis catheter was then withdrawn from the right pleural space. The entire procedure was performed using sterile technique. The procedure was tolerated well by the patient. The ultrasound machine was again used to examine the right pleural space after the procedure with findings as described above. A portable upright chest x-ray was performed after the procedure with findings as described above. The small incision at the right side of the back was closed with Dermabond. The pleural effusion fluid was sent to the laboratory for cytology studies. The patient appeared to tolerate the procedure well. ARETHA
[2016-12-31] MEDS ORDERED: CARBOPLATIN IV ONE (21:15)
[2017-01-01] VITALS (30 sets, daily range): BP systolic 113–150; BP diastolic 57–101; PULSE 91–106; RESP 16–20; TEMP 96.3–97.4; O2SAT 91–98
[2017-01-01] MEDS: ALBUTEROL INH.SOLN. 2.5mg/3ml (0.083%) Neb. AEROSOL SCH ×3 (02:39→16:16)
[2017-01-01 05:15] LABS: HCT - HEMATOCRIT 28.5 % (41-53); HGB - HEMOGLOBIN 8.7 GM/DL (13.5-17.5); MEAN CORPUSCULAR HGB 26.9 UUG (26-34); MEAN CORPUSCULAR HGB CONC(MCHC 30.5 GM/DL (31-37); MEAN CORPUSCULAR VOLUME 88.2 UM3 (80-100); RED BLOOD COUNT 3.23 M/MM3 (4.50-5.90); WBC - WHITE BLOOD COUNT 7.7 T/MM3 (4.5-11.0)
--- NOTE | 2017-01-01 05:19 | NUR ---
summary patient a&o x3. remains on 5l nc. attempted to wean to 4l O2 unable to maintain greater than 90%. denies pain. rested well. denies n/v/soa. up x1, uses urinal, adequate urine output. tolerated chemo well. vss. patient reported feeling much better an hour after the chemo, was very talkative and joking around. iv remains in the left ac. patient has been npo for PAC placement today. alarm on, call light in reach.
[2017-01-01 05:26] LABS: ALBUMIN/GLOBULIN RATIO 1.1 RATIO (1.1-2.2); ALKALINE PHOSPHATASE 173 U/L (38-126); ALT (SGPT) 61 U/L (21-72); ANION GAP 12 MEQ/L (5-15); AST (SGOT) 91 U/L (17-59); BUN/CREATININE RATIO 33 RATIO (6-26); CALCIUM 9.2 MG/DL (8.4-10.2); CHLORIDE 100 MEQ/L (98-107); CO2 - CARBON DIOXIDE 28 MEQ/L (22-30); CREATININE 0.7 MG/DL (0.8-1.5); GLOMERULAR FILTRATION RATE 113; GLUCOSE 142 MG/DL (75-110); MAGNESIUM 2.2 MG/DL (1.6-2.3); POTASSIUM 4.8 MEQ/L (3.6-5); SODIUM 140 MEQ/L (134-144); TOTAL PROTEIN 5.8 G/DL (6.3-8.2); URIC ACID 7.5 MG/DL (3.5-8.5)
[2017-01-01 05:32] LABS: LDH 2776 U/L (313-618)
[2017-01-01 06:10] LABS: BAND NEUTROPHILS # 0.5 T/MM3; LYMPHOCYTES # (MANUAL) 0.4 T/MM3 (1-4.8); METAMYELOCYTES # 0.1 T/MM3; NEUTROPHILS #(MANUAL)-ABSOLUTE 6.8 T/MM3 (1.8-7.7); NUCLEATED RED BLOOD CELLS 1; TOTAL CELLS COUNTED 100 %
[2017-01-01] MEDS: METHOCARBAMOL 500 MG TABLET PO SCH ×4 (08:12→21:11)
[2017-01-01] MEDS: DULOXETINE 30 MG CAPSULE PO SCH ×2 (08:12→21:10)
--- NOTE | 2017-01-01 09:42 | NUR ---
FRANCISCA ESPINOSA VISITED PT. CM EXPLAINED ROLE AND PROVIDED CONTACT INFORMATION. PT PLANS TO RETURN HOME POST HOSPITAL STAY. PT HAS HOME OXYGEN SUPPLIER BY WHO HE BELIEVES IS [facility]. PT DENIES NEEDS AT THIS TIME. PT IS AWARE TO CONTACT CM IF NEEDS [facility].
--- NOTE | 2017-01-01 09:50 | NUR ---
PAIN PT REPORTS PAIN, PRN NORCO GIVEN.
[2017-01-01] MEDS: ROPINIROLE 2 MG TABLET PO PRN ×2 (10:57→21:31)
[2017-01-01] MEDS ORDERED: BUPIVACAINE 0.25% (2.5mg/ml) INJ 30ml SDV ONE (11:03)
--- NOTE | 2017-01-01 11:15 | NUR ---
restless leg Pt reports restless leg and requests requip. prn given.
--- NOTE | 2017-01-01 11:18 | ANESPREOP ---
Anesthesia Record Date and Time DATE: 01/01/17 TIME: 11:15 Pre-Op Diagnosis lung cancer Proposed Surgical Procedure power port insertion Allergies: Coded Allergies: No Known Allergies (Unverified , 12/30/16) Ht/Wt/BMI Height: 5 ' 9.00 " Weight: 99.000 kg BMI: 32.2 kg/m2 Vital Signs Date Time Temp Pulse Resp B/P Pulse Ox O2 Delivery O2 Flow Rate FiO2 01/01/17 09:01 97 01/01/17 08:50 20 96 01/01/17 07:55 96.9 129/65 Nasal Cannula 5.00 Medications Inpatient Medications Current Medications Medications (Trade) Dose Ordered Sig/Mirian Start Time Stop Time Status Last Admin Dose Admin Ropinirole HCl (Requip) 2 mg TID PRN 12/30/16 14:15 01/01/17 10:57 2 MG Acetaminophen/ Hydrocodone Bitart 1 tab 1 tab Q4H PRN 12/30/16 14:30 01/01/17 08:12 1 TAB Sodium Chloride (0.45% NS) 1,000 ml @ 75 mls/hr [id number] 12/30/16 15:30 12/31/16 16:24 100 MLS/HR Albuterol Sulfate (Proventil 2.5 Mg/3 ml) 2.5 mg Q8H 12/30/16 19:00 01/01/17 08:57 2.5 MG Duloxetine HCl (Cymbalta) 30 mg BID 12/30/16 21:00 01/01/17 08:12 30 MG Methocarbamol (Robaxin) 500 mg QID 12/30/16 17:00 01/01/17 08:12 500 MG Tamsulosin HCl (FLOMAX 0.4 mg) 0.4 mg HS 12/30/16 22:00 12/31/16 21:00 0.4 MG Nicotine (Nicoderm) 21 mg DAILY PRN 12/30/16 18:30 Nicotine (Nicoderm Patch Removal) 1 removal DAILY PRN 12/30/16 18:45 Diphenhydramine HCl (Benadryl) 50 mg PRN PRN 12/31/16 17:30 Hydrocortisone Sodium Succinate (Solu-Cortef) 100 mg PRN PRN 12/31/16 17:30 Methylprednisolone Sodium Succinate (Solu-Medrol) 125 mg PRN PRN 12/31/16 17:30 Acetaminophen (Tylenol) 325 Mg Tablet, 1-2 TAB PO QID, (Reported) Last Taken: on Unknown Date & Time Albuterol Sulfate (Proair HFA 90 mcg/ actuation) 8.5 Gm Hfa.aer.ad, 2 PUFF INH Q8H, (Reported) Last Taken: on Unknown Date & Time Duloxetine HCl (Duloxetine HCl) 30 Mg Capsule.dr, 1 CAP PO BID, (Reported) Last Taken: on 12/30/16 0800 Meloxicam (Meloxicam) 15 Mg Tablet, 15 MG PO DAILY, (Reported) Last Taken: on 12/30/16 0800 Methocarbamol (Methocarbamol) 500 Mg Tablet, 1 TAB PO QID, (Reported) Last Taken: on 12/30/16 0800 Ropinirole HCl (Requip) 2 Mg Tablet, 2 MG PO TID PRN for PRN ORDERS, (Reported) Take 1 tablet, by mouth, 3 times a day. Last Taken: on 12/30/16 0900 Tamsulosin HCl (Tamsulosin HCl) 0.4 Mg Cap.er.24h, 0.4 MG PO HS, (Reported) Take 1 capsule, by mouth, 1 time a day (at BEDTIME). Last Taken: on 12/29/16 2200 Currently on Beta Zohaib: No Medical/Surgical History Anesthesia PMH: Reports: *Hypertension, Anxiety, Asthma, COPD, Cancer (lung cancer, metastasized), Denies: *[place], Blood Transfusion Reac, CHF, CVA/Stroke/TIA , Seizures Smoking Status: Current every day smoker # of Packs per Day: 1 # of Years: 40 Use Chewing Tobacco?: No Second Hand Exposure: No Substance Use Type: does not use Alcohol Intake: none Past Surgical History Orthopedic Surgeries: - right knee replaced, right shoulder, r/l wrists Abdominal Surgeries: No Genitourinary Surgeries: No Cardiac Surgeries: No Endocrine Surgeries: No Reproductive Surgeries: No Neurological Surgeries: No Ear Surgeries: No Nose Surgeries: No Throat Surgeries: No - tonsillectomy Other Surgeries: Anesthesia Adverse Reactions: FOUND none Family Hx of Anesthesia Advers: none Pertinent Findings Laboratory Tests 01/01/17 04:43 Test 12/31/16 05:10 Prothromb Time International Ratio 1.32 (0.76-1.04) EKG Rhythm: Sinus Rhythm Physical Exam Respiratory: Wheezing Cardiovascular: FOUND Regular rate, rhythm, FOUND Systolic murmur Airway Assessment Mallampati Score: II TMD: 3 Fingerbreadths Neck Extension: Fair Teeth: Chipped Teeth/Crowns Overall Assessment: May Be Diff Mask Vent. ASA: 4 Plan Anesthesia Plan: TIVA, LMA Discussion Discussed risks/options/alternatives of anesthesia and questions answered. Patient consents. Nursing pain assessment noted. Attestation Statement Prior to the delivery of any anesthetic medication, I examined the patient, developed the plan, obtained the patient's consent and discussed the risk and benefits of the procedure with the patient/guardian. PHIL GROVE CRNA Jan 01, 2017 11:18
[2017-01-01] MEDS ORDERED: PROPOFOL 500mg 50 ML IV ONE ×2 (11:25→11:46)
[2017-01-01] MEDS ORDERED: CEFAZOLIN 1 GRAM INJECTION ONE (11:28)
[2017-01-01] MEDS ORDERED: NORMAL SALINE 1,000 ML IV PRN (11:31)
--- NOTE | 2017-01-01 11:44 | NUR ---
PAC PT LEFT WITH PRE OP RN AT 1105 FOR PAC PLACEMENT.
[2017-01-01] MEDS: 1/2 NS 1,000 ML IV SCH (12:09)
[2017-01-01] MEDS ORDERED: PROPOFOL 200mg 20 ML IV ONE ×2 (12:13→12:28)
--- NOTE | 2017-01-01 12:50 | GSPOSTPROC ---
Immediate Operative Note DATE: 01/01/17 TIME: 12:48 Postop Diagnosis: Lung cancer Surgical Procedure: Other (Implantation of Power Port vascular access device) Surgeon: Rachel ASA: 4 DION CABA MD Jan 01, 2017 12:50
[2017-01-01] MEDS ORDERED: ONDANSETRON 4mg/2ml INJECTION IV PRN (13:00)
--- NOTE | 2017-01-01 13:16 | PNPDOC ---
MIKEY HINOJOSA INSTRUMENT STERILIZER 01/01/17 1313: Subjective Date DATE: 01/01/17 TIME: 13:10 Sitting on bedside, family with patient. Alert and oriented. Port-A-Cath placed today. States earlier was feeling poorly when first returned from procedure, states "okay now. I feel more clear today-I was out of it yesterday " Complains of persistent left anterior shoulder discomfort. Verbalizes tolerated chemotherapy well yesterday. No nausea, vomiting, no dizziness, lightheadedness. Eating fair; enjoying coffee now. Voiding normally. No BM since admission. General: No fever, no night sweats Eyes: No redness, no pain, no diplopia ENT: No mouth sores, no trouble swallowing Cardiac: No chest pain no palpitations Pulmonary: Shortness of air intermittently Abdomen: No pain, no nausea vomiting, no diarrhea or constipation : No urgency, frequency, dysuria, or hematuria Musculoskeletal: Intermittent left shoulder pain Neurological: Denies diplopia, still sees "spots " Skin: No rash, no sores Psychiatric: No anxiety, no depression Objective Vital Signs Vital Signs 01/01/17 01/01/17 01/01/17 01/01/17 02:34 02:34 02:43 04:52 Temp 96.6 Pulse 90 90 106 Resp 18 20 B/P 116/69 Pulse Ox 93 92 O2 Delivery Nasal Cannula O2 Flow Rate 5.00 01/01/17 01/01/17 01/01/17 01/01/17 07:55 08:00 08:50 08:50 Temp 96.9 Pulse 91 91 108 Resp 18 18 20 B/P 129/65 Pulse Ox 98 96 O2 Delivery Nasal Cannula O2 Flow Rate 5.00 01/01/17 01/01/17 01/01/17 09:01 11:18 12:50 Temp 97.2 97.4 Pulse 97 95 103 Resp 18 18 B/P 118/101 129/62 Pulse Ox 95 93 O2 Delivery Room Air Mask O2 Flow Rate 5.00 Height (Feet): 5 Height (Inches): 9.00 Weight (Kilograms): 99.000 Eyes (Brief) Eyes: FOUND: PERRL, NOT FOUND: scleral icterus Respiratory (Brief) Respiratory: FOUND: other (coarse rhonchi bilaterally), NOT FOUND: wheezes Cardiovascular (Brief) Cardiac: FOUND: regular rate, regular rhythm, NOT FOUND: pedal edema Abdomen (Brief) Abdominal: FOUND: BS normo active x4, other (discrete masses appreciated bilateral upper quadrants), soft, NOT FOUND: hepatosplenomegaly, tender Musculoskeletal (Brief) FOUND: other (moves all 4 extremities equally), NOT FOUND: deformity, loss of motion Neurologic (Brief) FOUND: cranial 2-12 intact, NOT FOUND: motor (no acute motor deficit) Psychiatric (Brief) FOUND: alert, attentive, normal affect, oriented Laboratory Laboratory Tests Test 01/01/17 04:43 White Blood Count 7.7T/MM3 Red Blood Count 3.23M/MM3 Hemoglobin 8.7GM/DL Hematocrit 28.5% Mean Corpuscular Volume 88.2UM3 Mean Corpuscular Hemoglobin 26.9UUG Mean Corpuscular Hemoglobin Concent 30.5GM/DL RDW Standard Deviation 53.2FL Platelet Count 351T/MM3 Mean Platelet Volume 10.0UM3 Immature Granulocyte % (Auto) % Neutrophils (%) (Auto) % Lymphocytes (%) (Auto) % Monocytes (%) (Auto) % Eosinophils (%) (Auto) % Basophils (%) (Auto) % Absolute Immature Granulocyte (auto T/MM3 Absolute Neutrophils (auto) T/MM3 Absolute Lymphocytes (auto) T/MM3 Absolute Monocytes (auto) T/MM3 Absolute Eosinophils (auto) T/MM3 Absolute Basophils (auto) T/MM3 Neutrophils % (Manual) 88.0% Band Neutrophils % 6.0% Lymphocytes % (Manual) 5.0% Metamyelocytes % 1.0% Absolute Neutrophils (Manual) 6.8T/MM3 Band Neutrophils # 0.5T/MM3 Lymphocytes # (Manual) 0.4T/MM3 Metamyelocytes # 0.1T/MM3 Nucleated Red Blood Cells 1 Red Cell Morphology Comment Normal Turbidity < 20 Sodium Level 140MEQ/L Potassium Level 4.8MEQ/L Chloride Level 100MEQ/L Carbon Dioxide Level 28MEQ/L Anion Gap 12MEQ/L Blood Urea Nitrogen 23.0MG/DL Creatinine 0.7MG/DL Glomerular Filtration Rate Calc 113 BUN/Creatinine Ratio 33RATIO Glucose Level 142MG/DL Calculated Osmolality 275MOSM/KG Uric Acid 7.5MG/DL Calcium Level 9.2MG/DL Magnesium Level 2.2MG/DL Total Bilirubin 1.00MG/DL Icterus Index < 2 Aspartate Amino Transf (AST/SGOT) 91U/L Alanine Aminotransferase (ALT/SGPT) 61U/L Alkaline Phosphatase 173U/L Lactate Dehydrogenase 2776U/L Total Protein 5.8G/DL Albumin 3.0G/DL Globulin 2.8G/DL Albumin/Globulin Ratio 1.1RATIO Chemistry Specimen Hemolysis < 15 Assessment & Plan Assessment 1. Advanced non-small cell lung cancer, adenocarcinoma type with widespread metastatic disease, newly diagnosed 2. Right pleural effusion. Status post right thoracentesis by Dr. Ramos. 3. Anemia of malignancy-HGB yesterday 8.9, today HGB 8.7. Plan/Intensity of Service Continue close monitoring for toxicity related to chemotherapy and disease. Continue supportive care. Will add dexamethasone 4 mg daily for recently diagnosed brain metastases with subjective visual symptoms. add Zantac daily. Code Status Full Code Hospital Course Summary Disclaimer The visit summary below is not to be considered part of the above Progress Note. Hospital Course Summary Patient to outpatient observation under the care of Dr. Payne for dyspnea, weakness Obtain the following laboratory studies on admission. CBC, CMP, urinalysis. Will obtain a 2 view chest x-ray to evaluate for effusion Oxygen saturation is borderline. However, patient does become moderately distressed with conversational dyspnea. Oxygen as needed to maintain adequate saturations greater than 92% With consultation to Dr. Miranda for further oncology evaluation and treatment. Patient does verbalize his wish to proceed with chemotherapy treatment or whatever recommendation as per oncology team. Half-normal saline at 100 ML per hour for gentle hydration. Patient may be up in room with assistance. Patient may have regular diet. SCDs to bilateral lower extremity for DVT prophylaxis Will discuss further plan of care with attending, Dr. Payne At time of discharge medical care will return to primary care provider at [place] 12/31/16 Treatment plans briefly reviewed with Dr. Miranda yesterday, additionally discussed with Dr. Ramos last night. Port-A-Cath to be placed in the morning. Palliative chemotherapy with Taxol and carboplatin being initiated. Radiation therapy consulted. CTA of chest be obtained to exclude PE as contributing to patient's exertional dyspnea-symptoms seem excessive relative to pleural fluid volume. Blood pressure stable, oxygenating well on 5 L supplemental O2. Continue supportive care. SALO ASKEW 01/01/17 1628: Assessment & Plan Assessment Patient examined, chart reviewed, agree with documentation by Fernanda Hinojosa. I participated development of the plan of care of this patient. No evidence of tumor lysis. Labs ordered for tumor lysis in the morning. CPK was negative for ruling out dermatomyositis. LDH was markedly elevated and is still stable. He has pain in his shoulder of uncertain etiology. Plain films are reviewed and there may be some lucency in the acromioclavicular joint. The shoulder joint itself seems slightly widened to me. Tolerated chemotherapy well. Dr. Miranda will be on-call this . Item Value Date Time White Blood Count 7.7 T/MM3 01/01/17 0443 Hemoglobin 8.7 GM/DL L 01/01/17 0443 Platelet Count 351 T/MM3 01/01/17 0443 Lactate Dehydrogenase 2713 U/L H 12/31/16 0510 Lactate Dehydrogenase 2776 U/L H 01/01/17 0443 Creatinine 0.7 MG/DL L 01/01/17 0443 Uric Acid 7.5 MG/DL 01/01/17 0443 Alkaline Phosphatase 173 U/L H 01/01/17 0443 Aspartate Amino Transf (AST/SGOT) 91 U/L H 01/01/17 0443 MIKEY HINOJOSA APRN Jan 01, 2017 13:13 SALO ASKEW Jan 01, 2017 16:28
--- NOTE | 2017-01-01 13:17 | DI ---
Indication: ITS.REASON: PORT INSERTION PROCEDURE: PORTACATH W FLUORO W 1V CXR: Encounter: Initial Comparison: Chest x-ray dated December 31, 2016 Findings: New right internal jugular approach central venous port catheter in place with the tip projecting over the lower SVC. No visible pneumothorax. Continued right middle and right lower lobe atelectasis with right upper lobe mass. Small right effusion. Left lung is grossly clear. Heart size and mediastinal contours are stable. Impression: New right IJ port as above. .
--- NOTE | 2017-01-01 13:25 | ANESPO ---
Post-Op Note Date 01/01/17 Time: 13:24 Status Pt Participated in Evaluation: Pt participated in person Vital Signs Date Time Temp Pulse Resp B/P Pulse Ox O2 Delivery O2 Flow Rate FiO2 01/01/17 13:10 96 16 127/63 92 Mask 5.00 01/01/17 12:50 97.4 Respiratory Function: Airway patent, Regular respirations Cardiovascular Function: Regular pulse Mental Status: Alert/oriented Pain Level Intensity: 3 Unable to Assess Pain Due To: Pt Sleeping Hydration: IV infusing Complications during Recovery None apparent Follow-Up Instructions Instructions Per Surgeon PHIL GROVE CRNA Jan 01, 2017 13:24
[2017-01-01] MEDS ORDERED: SALINE FLUSH *Sterile Field* 10ml SYRINGE IVF ONE (14:04)
--- NOTE | 2017-01-01 16:30 | PNPDOC ---
Subjective Date DATE: 01/01/17 TIME: 16:08 Subjective Mr. Jones was seen after Port-A-Cath placement. He complains of pain in his anterior left shoulder after using his arms to push up from a seated position yesterday at which time he heard a popping sound in the left. He's previously had rotator cuff injury on the right but never had left shoulder injuries. Pain is primarily in the anterior aspect of the shoulder and he can't move the arm well. He has minimal pain in the anterior chest wall following port placement. Appetite is poor but has had no nausea or vomiting. He reports breathing is much better and he was able to sleep 9 hours laying flat last night. He denies cough. He complains of spots in his visual goodwin, present previously. Denies focal weakness in 1 arm or 1 leg. Objective Vital Signs Vital signs Vital Signs Date Time Temp Pulse Resp B/P Pulse Ox O2 Delivery O2 Flow Rate FiO2 01/01/17 16:05 96.3 98 18 124/63 96 Nasal Cannula 4.00 I/O 2849/1300 EXAM General-alert, NAD, seated at the edge of the bed HEENT-conjunctiva clear, conjugate gaze, sclera anicteric Lungs-respirations nonlabored, faint crackles at the bases R>L, good airflow Cardiac-regular rhythm, S1-S2 Abd-soft, nontender, bowel sounds present Musculoskeletal-tender to palpation over the anterior right shoulder/right rotator cuff. Decreased internal/external rotation, abduction limited to 90, anterior flexion unrestricted; no crepitance noted with movements. Psych-calm, cooperative, oriented 3 Height (Feet): 5 Height (Inches): 9.00 Weight (Kilograms): 99.000 Laboratory Laboratory Laboratory Tests 12/31/16 05:10 01/01/17 04:43 Laboratory Tests 12/31/16 05:10 01/01/17 04:43 Segs 88, bands 6, lymphocytes 5, metamyelocytes 1 AST 91, alk phosphatase 173, LDH 2776 Radiology Chest x-ray today following Port-A-Cath placement reveals no evidence of pneumothorax and atelectasis of the lower/middle lobes on the right and mass in the right upper. CTA chest yesterday was without evidence of pulmonary emboli enlarger arteries, peripheral arteries could not be fully evaluated due to degree of atelectasis/ collapse. Right upper lobe mass was seen in the major fissure with atelectasis of most of the right middle and significant portion of the right lower lobe. Small right pleural effusion persists. Minor left lower lobe atelectasis is present. Paratracheal, prevascular, and right hilar adenopathy present. Films reviewed by myself. Assessment & Plan Problems: (1) Dyspnea on exertion Status: Acute Assessment & Plan: Exertion limited to 5-10 steps (2) Lung cancer Status: Acute Qualifiers: Lung location: unspecified part of lung Assessment & Plan: Widely metastatic per verbal report Dr. Miranda-bone, liver, soft tissues, brain (3) Atelectasis of right lung (4) Metastatic bone tumor Status: Acute (5) Pleural effusion on right Status: Acute Assessment & Plan: Malignant (6) Restless leg syndrome (7) Hypertension Status: Chronic (8) Tobacco dependence Status: Chronic (9) Chronic back pain Status: Chronic Assessment & Plan: Related to service injury (10) Normocytic anemia Status: Chronic (11) Shoulder pain, left Status: Acute Assessment Patient primary concern today is of pain in his left shoulder-motion limited on examination; films to be obtained and patient referred back to primary care physician for further management. Port-A-Cath placed for future chemotherapy, tolerated first dose uneventfully. Anticipate discharge tomorrow. Small brain lesions present with edema present in the left frontal lobe. Oral decadron initiated, discussed with oncology. CTA of the lungs demonstrate significant atelectasis in the right lower and right middle lobes but no evidence of pulmonary emboli in the larger pulmonary arteries. Suspect atelectasis contributing to dyspnea, incentive spirometry added. Discharge anticipated in a.m. if no complicating problems overnight. Plan/Intensity of Service Discussed with nursing/family, CTA chest reviewed by myself, laboratory data reviewed. Discussed with oncology. DVT Prophylaxis: SCD'S Code Status Full Code Hospital Course Summary Disclaimer The hospital course summary below is not to be considered part of the above Progress Note. Hospital Course Summary Patient admitted for dyspnea, weakness Obtain the following laboratory studies on admission. CBC, CMP, urinalysis. Will obtain a 2 view chest x-ray to evaluate for effusion Oxygen saturation is borderline. However, patient does become moderately distressed with conversational dyspnea. Oxygen as needed to maintain adequate saturations greater than 92% With consultation to Dr. Miranda for further oncology evaluation and treatment. Patient does verbalize his wish to proceed with chemotherapy treatment or whatever recommendation as per oncology team. Half-normal saline at 100 ML per hour for gentle hydration. Patient may be up in room with assistance. Patient may have regular diet. SCDs to bilateral lower extremity for DVT prophylaxis Will discuss further plan of care with attending, Dr. Payne At time of discharge medical care will return to primary care provider at [place] 12/31/16 Treatment plans briefly reviewed with Dr. Miranda yesterday, additionally discussed with Dr. Ramos last night. Port-A-Cath to be placed in the morning. Palliative chemotherapy with Taxol and carboplatin being initiated. Radiation therapy consulted. CTA of chest be obtained to exclude PE as contributing to patient's exertional dyspnea-symptoms seem excessive relative to pleural fluid volume. Blood pressure stable, oxygenating well on 5 L supplemental O2. Continue supportive care. 01/01/17 Patient primary concern today is of pain in his left shoulder-motion limited on examination; films to be obtained and patient referred back to primary care physician for further management. Port-A-Cath placed for future chemotherapy, tolerated first dose yesterday with carboplatin and Taxol uneventfully. Anticipate discharge tomorrow. Small brain lesions present with edema present in the left frontal lobe. Oral decadron initiated, discussed with oncology. CTA of the lungs demonstrate significant atelectasis in the right lower and right middle lobes but no evidence of pulmonary emboli in the larger pulmonary arteries. Suspect atelectasis contributing to dyspnea, incentive spirometry added. Discharge anticipated in a.m. if no complicating problems overnight. ESME PAYNE MD Jan 01, 2017 16:12
--- NOTE | 2017-01-01 16:52 | DI ---
Indication: ITS.REASON: acute anterior pain, "popped" PROCEDURE: SHOULDER LEFT 2-3 VIEWS: Encounter: Initial Comparison: None Findings: There is no acute fracture, dislocation or malalignment identified. Mild acromioclavicular and glenohumeral degenerative changes. Impression: No acute osseous abnormality. .
[2017-01-01] MEDS ORDERED: DEXAMETHASONE 4 MG TABLET PO ONE (17:30)
[2017-01-01] MEDS ORDERED: RANITIDINE 150 MG TABLET PO ONE (17:30)
--- NOTE | 2017-01-01 17:52 | NUR ---
SHIFT PT HAS BEEN PLEASANT AND COOPERATIVE ALL SHIFT. PT IS AA&OX3, UP WITH ONE ASSIST, MODERATE FALL. PT DENIES N/V AND SOA. PT IS ON 4L O2 NC AND THIS IS HIS NORMAL AT HOME O2. PT DOES REPORT PAIN, PRN PAIN MEDS GIVEN. DRESSING TO PAC, C/D/I AND SLING IS IN PLACE. FAMILY HAS BEEN AT BEDSIDE. NO OTHER CHANGES SINCE PREVIOUS NOTES. ALARMS IN USE AND CALL LIGHT WITH IN REACH.
[2017-01-01] MEDS ORDERED: NYSTATIN POWDER 15gm BOTTLE TOP SCH (21:00)
[2017-01-01] MEDS: TAMSULOSIN 0.4 MG CAPSULE PO SCH (21:11)
[2017-01-02 00:01] VITALS: BP 130/67; PULSE 97; RESP 18; TEMP 97.7; O2SAT 93
[2017-01-02 00:46] VITALS: O2SAT 92
[2017-01-02] MEDS: ALBUTEROL INH.SOLN. 2.5mg/3ml (0.083%) Neb. AEROSOL SCH ×2 (00:51→08:53)
[2017-01-02 04:00] VITALS: BP 132/74; PULSE 95; RESP 18; TEMP 97.6; O2SAT 93
[2017-01-02 05:25] LABS: HCT - HEMATOCRIT 27.7 % (41-53); HGB - HEMOGLOBIN 8.5 GM/DL (13.5-17.5); MEAN CORPUSCULAR HGB CONC(MCHC 30.7 GM/DL (31-37); MEAN CORPUSCULAR VOLUME 87.9 UM3 (80-100); MEAN PLATELET VOLUME 10.4 UM3 (9.4-12.4); RED BLOOD COUNT 3.15 M/MM3 (4.50-5.90); WBC - WHITE BLOOD COUNT 7.8 T/MM3 (4.5-11.0)
[2017-01-02 05:40] LABS: ALBUMIN/GLOBULIN RATIO 1.2 RATIO (1.1-2.2); ALKALINE PHOSPHATASE 188 U/L (38-126); ALT (SGPT) 84 U/L (21-72); ANION GAP 10 MEQ/L (5-15); AST (SGOT) 159 U/L (17-59); BUN/CREATININE RATIO 34 RATIO (6-26); CALCIUM 8.9 MG/DL (8.4-10.2); CHLORIDE 102 MEQ/L (98-107); CO2 - CARBON DIOXIDE 26 MEQ/L (22-30); CREATININE 0.7 MG/DL (0.8-1.5); GLOMERULAR FILTRATION RATE 113; GLUCOSE 126 MG/DL (75-110); MAGNESIUM 2.2 MG/DL (1.6-2.3); PHOSPHORUS 4.3 MG/DL (2.5-4.5); POTASSIUM 4.6 MEQ/L (3.6-5); SODIUM 138 MEQ/L (134-144); TOTAL PROTEIN 5.6 G/DL (6.3-8.2); URIC ACID 7.9 MG/DL (3.5-8.5)
[2017-01-02 06:01] LABS: LDH 4075 U/L (313-618)
[2017-01-02 06:13] LABS: ANISOCYTOSIS 1+; BAND NEUTROPHILS # 0.1 T/MM3; LYMPHOCYTES # (MANUAL) 0.2 T/MM3 (1-4.8); MONOCYTES # (MANUAL) 0.1 T/MM3 (0-0.8); NEUTROPHILS #(MANUAL)-ABSOLUTE 7.5 T/MM3 (1.8-7.7); POIKILOCYTOSIS 1+; TOTAL CELLS COUNTED 100 %
--- NOTE | 2017-01-02 07:39 | NUR ---
SHIFT SUMMARY: PT IS A&OX3, FRIENDLY, AND COOPERATIVE. ON 4L NC, PT IS ALSO ON 4L O2 NC AT HOME. UP WITH 1 STANDBY ASSIST, IV LOCKED, HAS A RIGHT CHEST FABIOLA CATH. PT'S RIGHT ARM IS IN A SLING; Q4 VITALS. PT USES URINAL. PT DENIES N/V AND SOA. BED ALARM ON, CALL LIGHT WITHIN REACH.
[2017-01-02] MEDS: DULOXETINE 30 MG CAPSULE PO SCH (07:44)
[2017-01-02] MEDS: ROPINIROLE 2 MG TABLET PO PRN (07:44)
[2017-01-02] MEDS: METHOCARBAMOL 500 MG TABLET PO SCH (07:44)
[2017-01-02 07:52] VITALS: BP 118/67; PULSE 99; RESP 18; TEMP 95.6; O2SAT 94
--- NOTE | 2017-01-02 08:38 | OPNOTEF ---
DATE OF OPERATION 01/01/2017 PREOPERATIVE DIAGNOSIS Advanced right pulmonary [id number] lung cancer (adenocarcinoma type) with widespread metastatic disease. POSTOPERATIVE DIAGNOSIS Advanced right pulmonary [id number] lung cancer (adenocarcinoma type) with widespread metastatic disease. OPERATION Implantation of PowerPort vascular access device. SURGEON Atilio Ramos MD ANESTHESIA TIVA. ASA CLASS 4 DESCRIPTION OF OPERATION The patient was placed in the supine position on the operating table. The patient was premedicated with intravenous sedation medication administered by the nurse wholesale parts salesperson. The suprasternal notch area, left supraclavicular area, left infraclavicular area, left side of the neck, left shoulder, right supraclavicular area, right infraclavicular area, right side of the neck, and right shoulder were all prepped and draped in a routine sterile fashion. A Caterna ultrasound device was used to examine the right carotid artery and the right internal jugular vein. Bupivacaine 0.25% without epinephrine was infiltrated into the skin and subcutaneous tissue at the right side of the neck. A small incision was made at this area. A percutaneous venipuncture of the right internal jugular vein was then performed with ultrasound guidance. There was a good return of dark red nonpulsatile blood. A flexible guidewire was passed through the needle and through the right internal jugular vein down into the superior vena cava. The position of the flexible guidewire within the superior vena cava was confirmed with fluoroscopy with the C-arm at this time. Bupivacaine was infiltrated into the skin and subcutaneous tissue at an obliquely oriented incision at the right infraclavicular area. An obliquely oriented incision was made at this area and extended down through the underlying tissue. Bupivacaine was infiltrated into the tissue at this area. A subcutaneous pocket was then made beneath the inferior margin of the right infraclavicular incision. The implantable port was flushed with heparinized saline solution. The port was placed into the pocket which had been created for it between the pectoralis fascia and the subcutaneous tissue at the right infraclavicular incision area. Two simple interrupted stitches of 0 Prolene suture were placed at each of the four corner suture rings to secure the port to the underlying pectoralis fascia. The catheter was flushed with heparinized saline solution. The hemostat was inserted at the right infraclavicular wound and passed over the clavicle and beneath the subcutaneous tissue to come out at the incision at the right side of the neck. The hemostat was used to grasp the end of the catheter and pull it through a tunnel from the incision at the right side of the neck down to the incision at the right infraclavicular area. A vessel dilator and sheath introducer were then advanced over the flexible guidewire into the internal jugular vein. The vessel dilator and guidewire were then removed from the peel-away sheath. The end of the catheter was introduced into the peel-away sheath. The catheter was easily passed through the peel-away sheath and down into the superior vena cava. The peel-away sheath was removed. The position of the catheter was checked with the C-arm. The position of the catheter was adjusted until the tip of the catheter was in the superior vena cava near the junction of the superior vena cava and the right atrium. Excess catheter at the distal end of the catheter was excised and discarded. The catheter was connected to the stem of the port at the right infraclavicular subcutaneous pocket. The catheter lock was advanced onto the stem of the port to lock the catheter in place on the stem of the port. With the catheter connected to the port, heparinized saline was injected through the port and through the catheter. The position of the catheter was again checked with the C-arm. The position of the catheter appeared to be satisfactory at this time. Subcutaneous tissue was closed at the obliquely oriented incision at the right infraclavicular area in two layers with a continuous simple [id number] stitch using 3-0 Vicryl suture. Skin margins were reapproximated at the obliquely oriented right infraclavicular incision with a continuous subcuticular stitch using 4-0 Vicryl suture. Skin margins were then reapproximated at the short incision at the right side of the neck with interrupted subcuticular stitches using 4-0 Vicryl suture. Benzoin and 1/2-inch wide Steri-Strips were applied to the incisions at the right side of the neck and at the right infraclavicular area. Sterile dressings were applied to the incisions. The patient did receive intravenous sedation medication administered by the nurse wholesale parts salesperson throughout the operation as needed to maintain patient comfort. The patient did appear to tolerate the operation well. ARETHA
[2017-01-02 08:54] VITALS: O2SAT 94
[2017-01-02] MEDS ORDERED: DEXAMETHASONE 4 MG TABLET PO SCH (09:00)
[2017-01-02] MEDS ORDERED: RANITIDINE 150 MG TABLET PO SCH (09:00)
--- NOTE | 2017-01-02 09:53 | PNF ---
DATE 01/02/2017 POSTOP DAY #1 HISTORY Doing well. PHYSICAL EXAMINATION VITAL SIGNS: Temperature is 95.6 degrees oral. Pulse is 99. Respiratory rate is 18. Blood pressure is 118/67. Oxygen saturation is 94% on oxygen at 4 liters per minute by nasal cannula. CHEST: The wound at the right infraclavicular area from the operation yesterday looks good. No sign of any wound healing problems. IMPRESSION Doing well following implantation of PowerPort vascular access device on 01/01/2017. PLAN Dismiss patient from hospital at the discretion of the hospitalist service. My office will contact the patient after he has been dismissed from the hospital to make arrangements for postoperative followup office visit with me. PATIENT EDUCATION I did instruct the patient today regarding wound care at the PowerPort vascular access device implantation site. He may shower and bathe over this area starting tomorrow. Additional wound care instructions have been given. ARETHA
[2017-01-02] MEDS ORDERED: HYDR-4072 PO (10:39)
[2017-01-02] MEDS ORDERED: DEXA4TAB PO (10:39)
[2017-01-02] MEDS ORDERED: RANI150T7 PO (10:39)
--- NOTE | 2017-01-02 12:06 | NUR ---
status/DC Pt A/O x3, V/S stable on RA. Pt ambulating well in room, denies wanting to eat or bath R/T going home. Pain rated at 5-7/10, PRN norco given and pt able to rest till family came. IV site DC, cath tip intact. DC instructions given with family present, no questions at this time. Pt dressed and gathered belongings. Taken to front door via WC at 1130.
--- NOTE | 2017-01-02 13:51 | DSPDOC ---
General Date Date DATE: 01/02/17 TIME: 13:38 Attending Physician Isabella Payne MD Admitting Physician Isabella Payne MD Consulting Physician Atilio Caba MD Admitting Diagnosis metastatic lung cancer, pleural effusion Discharge Diagnosis Metastatic lung cancer Pleural effusion Anemia of CKD + malignancy Right shoulder pain Transaminitis Moderate PCM GERD Brain edema, decadron initiated Procedures 01/01/[address] Caba for chemotherapy infusions 12/31/16 thoracentesis/paracentesis Laboratory Laboratory Tests Test 01/01/17 04:43 01/02/17 04:16 White Blood Count 7.7T/MM3 (4.5-11.0) 7.8T/MM3 (4.5-11.0) Red Blood Count 3.23M/MM3 (4.50-5.90) 3.15M/MM3 (4.50-5.90) Hemoglobin 8.7GM/DL (13.5-17.5) 8.5GM/DL (13.5-17.5) Hematocrit 28.5% (41-53) 27.7% (41-53) Mean Corpuscular Volume 88.2UM3 (80-100) 87.9UM3 (80-100) Mean Corpuscular Hemoglobin 26.9UUG (26-34) 27.0UUG (26-34) Mean Corpuscular Hemoglobin Concent 30.5GM/DL (31-37) 30.7GM/DL (31-37) RDW Standard Deviation 53.2FL (36.9-50.2) 52.4FL (36.9-50.2) Platelet Count 351T/MM3 (130-400) 302T/MM3 (130-400) Mean Platelet Volume 10.0UM3 (9.4-12.4) 10.4UM3 (9.4-12.4) Immature Granulocyte % (Auto) % (0.0-0.5) % (0.0-0.5) Neutrophils (%) (Auto) % (33-66) % (33-66) Lymphocytes (%) (Auto) % (23-45) % (23-45) Monocytes (%) (Auto) % (0-9.0) % (0-9.0) Eosinophils (%) (Auto) % (0-4) % (0-4) Basophils (%) (Auto) % (0-2) % (0-2) Absolute Immature Granulocyte (auto T/MM3 (0.00-0.03) T/MM3 (0.00-0.03) Absolute Neutrophils (auto) T/MM3 (1.8-7.7) T/MM3 (1.8-7.7) Absolute Lymphocytes (auto) T/MM3 (1-4.8) T/MM3 (1-4.8) Absolute Monocytes (auto) T/MM3 (0-0.8) T/MM3 (0-0.8) Absolute Eosinophils (auto) T/MM3 (0-0.5) T/MM3 (0-0.5) Absolute Basophils (auto) T/MM3 (0-0.2) T/MM3 (0-0.2) Neutrophils % (Manual) 88.0% (33-66) 96.0% (33-66) Band Neutrophils % 6.0% (0-6) 1.0% (0-6) Lymphocytes % (Manual) 5.0% (23-45) 2.0% (23-45) Metamyelocytes % 1.0% (0-0) Absolute Neutrophils (Manual) 6.8T/MM3 (1.8-7.7) 7.5T/MM3 (1.8-7.7) Band Neutrophils # 0.5T/MM3 0.1T/MM3 Lymphocytes # (Manual) 0.4T/MM3 (1-4.8) 0.2T/MM3 (1-4.8) Metamyelocytes # 0.1T/MM3 Nucleated Red Blood Cells 1 Red Cell Morphology Comment Normal Abnormal Turbidity < 20 (0-20) < 20 (0-20) Sodium Level 140MEQ/L (134-144) 138MEQ/L (134-144) Potassium Level 4.8MEQ/L (3.6-5) 4.6MEQ/L (3.6-5) Chloride Level 100MEQ/L (98-107) 102MEQ/L (98-107) Carbon Dioxide Level 28MEQ/L (22-30) 26MEQ/L (22-30) Anion Gap 12MEQ/L (5-15) 10MEQ/L (5-15) Blood Urea Nitrogen 23.0MG/DL (9-20) 24.0MG/DL (9-20) Creatinine 0.7MG/DL (0.8-1.5) 0.7MG/DL (0.8-1.5) Glomerular Filtration Rate Calc 113 113 BUN/Creatinine Ratio 33RATIO (6-26) 34RATIO (6-26) Glucose Level 142MG/DL (75-110) 126MG/DL (75-110) Calculated Osmolality 275MOSM/KG (261-280) 272MOSM/KG (261-280) Uric Acid 7.5MG/DL (3.5-8.5) 7.9MG/DL (3.5-8.5) Calcium Level 9.2MG/DL (8.4-10.2) 8.9MG/DL (8.4-10.2) Magnesium Level 2.2MG/DL (1.6-2.3) 2.2MG/DL (1.6-2.3) Total Bilirubin 1.00MG/DL (0.20-1.30) 1.00MG/DL (0.20-1.30) Icterus Index < 2 (0-7) < 2 (0-7) Aspartate Amino Transf (AST/SGOT) 91U/L (17-59) 159U/L (17-59) Alanine Aminotransferase (ALT/SGPT) 61U/L (21-72) 84U/L (21-72) Alkaline Phosphatase 173U/L (38-126) 188U/L (38-126) Lactate Dehydrogenase 2776U/L (313-618) 4075U/L (313-618) Total Protein 5.8G/DL (6.3-8.2) 5.6G/DL (6.3-8.2) Albumin 3.0G/DL (3.5-5.0) 3.0G/DL (3.5-5.0) Globulin 2.8G/DL (2.4-3.6) 2.6G/DL (2.4-3.6) Albumin/Globulin Ratio 1.1RATIO (1.1-2.2) 1.2RATIO (1.1-2.2) Chemistry Specimen Hemolysis < 15 (0-25) < 15 (0-25) Monocytes % (Manual) 1.0% (0-9.0) Monocytes # (Manual) 0.1T/MM3 (0-0.8) Poikilocytosis 1+ Anisocytosis 1+ Phosphorus Level 4.3MG/DL (2.5-4.5) Radiology PROCEDURE: PORTACATH W FLUORO W 1V CXR 01/01/17 Encounter: Initial Comparison: Chest x-ray dated December 31, 2016 Findings: New right internal jugular approach central venous port catheter in place with the tip projecting over the lower SVC. No visible pneumothorax. Continued right middle and right lower lobe atelectasis with right upper lobe mass. Small right effusion. Left lung is grossly clear. Heart size and mediastinal contours are stable. Impression: New right IJ port as above. . PROCEDURE: SHOULDER LEFT 2-3 VIEWS 01/01/17 Encounter: Initial Comparison: None Findings: There is no acute fracture, dislocation or malalignment identified. Mild acromioclavicular and glenohumeral degenerative changes. Impression: No acute osseous abnormality. Brain MRI 12/31/16 Comparisons: PET/CT dated December 25, 2016 Technique: Multiplanar, multisequence, MR imaging of the head with and without contrast was acquired. Contrast: 9.5 mL of Gadavist FINDINGS: Motion artifact limits the exam. There is a focal T2 hyperintense enhancing lesion in the right occipital lobe measuring 0.8 cm in diameter on axial image #13. There is an additional area of gyriform enhancement in the left anterior frontal lobe best seen on postcontrast axial image #16 and coronal images 24 and 25. This area measures 1.4 x 1.5 cm in diameter. No additional enhancing masses identified. There is mild surrounding vasogenic edema. The ventricles are of normal size, shape, and contour for the patient's age. There are small nonspecific punctate areas of T2-weighted and T2 FLAIR weighted signal abnormality in the deep frontoparietal white matter that most likely represent small vessel ischemic disease. This is of a degree that is considered to be normal for the patient's age. The brain stem, cerebellum, and cerebral hemispheres otherwise have a normal morphologic appearance as well as MR signal intensity on all pulse sequences. There are no areas of restricted diffusion to suggest an acute infarct. There is no evidence of an intracranial hemorrhage or hydrocephalus. The visualized portions of the orbits, calvarium, paranasal sinuses, and skull base demonstrate no significant abnormality. IMPRESSION: Right occipital and subcortical left frontal lobe metastases. CTA Chest 12/31/16 Comparison: Chest x-ray from today Technique: Axial CT pulmonary angiographic phase images were performed through the chest after the administration of intravenous contrast. Coronal and Sagittal MIP reconstructed images were created and reviewed. Automated Exposure Control and Iterative Reconstruction dose reducing techniques were utilized. Contrast: Omnipaque 350 70 mL Findings: Pulmonary arteries: Exam is diagnostic to the interlobar pulmonary arterial level. No large or central pulmonary embolus seen. The segmental and subsegmental pulmonary arterial branches cannot be well evaluated due to contrast bolus admixture and timing. Other findings: No pneumothorax. There is patchy groundglass opacity in the right apex. Right upper lobe mass along the major fissure is again seen. There is atelectasis involving most of the right middle and a large portion of the right lower lobe. Small right pleural effusion. Mild left lower lobe atelectasis. The central airways appear patent. Mildly enlarged right axillary lymph node measuring 1.4 cm in short axis. Enlarged right paratracheal node measuring 2.5 cm short axis dimension. Additional prevascular and paratracheal adenopathy along with right hilar adenopathy. Heart is normal in size with a moderate pericardial effusion. Liver is slightly nodular in contour which could be due to cirrhosis. No acute findings in the upper abdomen. Left adrenal presumed metastasis. Impression: 1. No large or central pulmonary embolus. Smaller peripheral pulmonary emboli cannot be excluded. 2. Large areas of right middle and right lower lobe atelectasis with right upper lobe malignancy. 3. Metastatic adenopathy. History of Present Illness Kenn is a pleasant 66 yr old male with known Lung cancer widespread metastatic disease. He has done all of his primary care management at [facility] in [place], however, he resides in [place], [place]. He was hospitalized at [facility] last month in November for Pneumonia and was found to have lung cancer. He does report that his primary care provider at [facility] has been watching a "spot" on his lung for numerous years, however, he has never had a biopsy until last month. While at [facility] he underwent a thoracentesis and had 1 liter drained off. He was discharged to follow-up with Dr. Gregg for further oncology evaluation and treatment. Patient reports he did see Dr. Gregg last week 12/23 and was found to be in anemic with hemoglobin of 8.1. At that time he received a blood transfusion. On 12/25 an outpatient PET scan was performed showing widespread metastatic disease involving the following, mediastinum, skeleton, left adrenal and liver with peritoneal metastasis and probable malignant ascites. He contacted Dr Dawson office today to report increased shortness of breath and weakness. The hospitalist services were contacted and accepted patient for direct admission for further evaluation and treatment. Hospital Course Patient admitted for dyspnea, weakness Obtain the following laboratory studies on admission. CBC, CMP, urinalysis. Will obtain a 2 view chest x-ray to evaluate for effusion Oxygen saturation is borderline. However, patient does become moderately distressed with conversational dyspnea. Oxygen as needed to maintain adequate saturations greater than 92% With consultation to Dr. Gregg for further oncology evaluation and treatment. Patient does verbalize his wish to proceed with chemotherapy treatment or whatever recommendation as per oncology team. Half-normal saline at 100 ML per hour for gentle hydration. Patient may be up in room with assistance. Patient may have regular diet. SCDs to bilateral lower extremity for DVT prophylaxis Will discuss further plan of care with attending, Dr. Payne At time of discharge medical care will return to primary care provider at [facility] 12/31/16 Treatment plans briefly reviewed with Dr. Gregg yesterday, additionally discussed with Dr. Caba last night. Port-A-Cath to be placed in the morning. Palliative chemotherapy with Taxol and carboplatin being initiated. Radiation therapy consulted. CTA of chest be obtained to exclude PE as contributing to patient's exertional dyspnea-symptoms seem excessive relative to pleural fluid volume. Blood pressure stable, oxygenating well on 5 L supplemental O2. Continue supportive care. 01/01/17 Patient primary concern today is of pain in his left shoulder-motion limited on examination; films to be obtained and patient referred back to primary care physician for further management. Port-A-Cath placed for future chemotherapy, tolerated first dose yesterday with carboplatin and Taxol uneventfully. Anticipate discharge tomorrow. Small brain lesions present with edema present in the left frontal lobe. Oral decadron initiated, discussed with oncology. CTA of the lungs demonstrate significant atelectasis in the right lower and right middle lobes but no evidence of pulmonary emboli in the larger pulmonary arteries. Suspect atelectasis contributing to dyspnea, incentive spirometry added. Discharge anticipated in a.m. if no complicating problems overnight. 01/02/17 Doing well today with pain in the shoulder improved. Dr. Caba has examined his PAC and is happy with the result, okay with DC today. Patient requesting DC home, denies any new concerns. Tolerating decadron for mild brain edema and will continue. Discharged home with f/u for chemotherapy next week and with Dr. Gregg. Problems: (1) Dyspnea on exertion Status: Acute Assessment & Plan: Exertion limited to 5-10 steps (2) Lung cancer Status: Acute Assessment & Plan: Widely metastatic per verbal report Dr. Gregg-bone, liver, soft tissues, brain (3) Atelectasis of right lung (4) Metastatic bone tumor Status: Acute (5) Pleural effusion on right Status: Acute Assessment & Plan: Malignant (6) Restless leg syndrome (7) Hypertension Status: Chronic (8) Tobacco dependence Status: Chronic (9) Chronic back pain Status: Chronic Assessment & Plan: Related to service injury (10) Normocytic anemia Status: Chronic (11) Shoulder pain, left Status: Acute Code Status Full Code Home Meds Active Scripts Dexamethasone (Dexamethasone) 4 Mg Tablet, 4 MG PO DAILY for 30 Days, #30 TAB Prov:DIVINE VALDEZ APRN 01/02/17 Ranitidine HCl (Ranitidine HCl) 150 Mg Tablet, 150 MG PO DAILY for 30 Days, #30 TAB Prov:DIVINE VALDEZ APRN 01/02/17 Hydrocodone/Acetaminophen (Hydrocodon-Acetaminoph 7.5-325) 7.5-325 Tablet, 1 TAB PO Q4H Y for PAIN, #30 TAB Prov:DIVINE VALDEZ APRN 01/02/17 Reported Medications Tamsulosin HCl (Tamsulosin HCl) 0.4 Mg Cap.er.24h, 0.4 MG PO HS, CAP Take 1 capsule, by mouth, 1 time a day (at BEDTIME). 12/30/16 Methocarbamol (Methocarbamol) 500 Mg Tablet, 1 TAB PO QID 12/30/16 Meloxicam (Meloxicam) 15 Mg Tablet, 15 MG PO DAILY, TAB 12/30/16 Duloxetine HCl (Duloxetine HCl) 30 Mg Capsule.dr, 1 CAP PO BID, CAP 12/30/16 Albuterol Sulfate (Proair HFA 90 mcg/actuation) 8.5 Gm Hfa.aer.ad, 2 PUFF INH Q8H, INHALER 12/30/16 Ropinirole HCl (Requip) 2 Mg Tablet, 2 MG PO TID Y for PRN ORDERS, TAB Take 1 tablet, by mouth, 3 times a day. 12/30/16 Discontinued Reported Medications Acetaminophen (Tylenol) 325 Mg Tablet, 1-2 TAB PO QID, #60 TAB 2 Refills 12/30/16 Face to Face Encounter I met with patient on the day of dismissal and discussed follow up appointments , medications, and safety plan. Exam at the time of DC: [facility] awake, alert, NAD, conversant NCAT, MMM, anicteric sclerae PAC in place at the right chest wall and bandaged without erythema or tenderness CV regular, nontachy RESP clear bilaterally without rales/rhonchi/wheezing abdomen obese, NTTP/ND EXT no edema, WWP, no rashes Discharge Disposition He is discharging to home with family support and outpatient chemotherapy arrangements made for Wednesday01/06/17. Copies To 1: YESENIA GREGG MD Copies To 2: TAILIO CABA MD, AMANDA M MD Jan 02, 2017 13:42
== END 2017-01-02 11:27 | disposition home or self-care (01) | DRG 180 ==
LOC: MED 12:52 → OBSVTOIN 18:35
PROVIDERS: ADMIT Internal Medicine; ATTEND Internal Medicine
PROC: 05HM33Z Insertion of Infusion Device into Right Internal Jugular Vein, Percutaneous Approach (ICD-10-PCS; 2017-01-01)
PROC: B543ZZA Ultrasonography of Right Jugular Veins, Guidance (ICD-10-PCS; 2017-01-01)
PROC: 0JH60XZ Insertion of Tunneled Vascular Access Device into Chest Subcutaneous Tissue and Fascia, Open Approach (ICD-10-PCS; principal; 2017-01-01 11:44)
DX: C34.90 Malignant neoplasm of unspecified part of unspecified bronchus or lung (principal); G93.6 Cerebral edema; C78.7 Secondary malignant neoplasm of liver and intrahepatic bile duct; C79.51 Secondary malignant neoplasm of bone; C79.89 Secondary malignant neoplasm of other specified sites; J91.0 Malignant pleural effusion; J98.11 Atelectasis; I12.9 Hypertensive chronic kidney disease with stage 1 through stage 4 chronic kidney disease, or unspecified chronic kidney disease; N18.9 Chronic kidney disease, unspecified; F17.200 Nicotine dependence, unspecified, uncomplicated; G25.81 Restless legs syndrome; G89.29 Other chronic pain; D63.0 Anemia in neoplastic disease; R51 Headache; H53.8 Other visual disturbances; M25.512 Pain in left shoulder; K21.9 Gastro-esophageal reflux disease without esophagitis
CPT/HCPCS: 36415; 80048; 80053; 81001; 82550; 83615; 83735; 84100; 84484; 84550; 85025; 85610; 88112; 88305; 93005; 94640; 99406

== ENCOUNTER → 2017-01-06 | Outpatient (CLI) | payer MEDICARE, OTHER ==
[~2017-01-06] MED LIST changes: -ACET-2321 PO; +ACET325T51 PO; +ALLO300T2 PO; +AMOX875T2 PO; +FENT1PAT65 TOP; +METO-230 PO
[2017-01-06 08:49] LABS: HCT - HEMATOCRIT 26.7 % (41-53); HGB - HEMOGLOBIN 8.2 GM/DL (13.5-17.5); MEAN CORPUSCULAR HGB CONC(MCHC 30.7 GM/DL (31-37); MEAN CORPUSCULAR VOLUME 87.8 UM3 (80-100); MEAN PLATELET VOLUME 10.4 UM3 (9.4-12.4); RED BLOOD COUNT 3.04 M/MM3 (4.50-5.90); WBC - WHITE BLOOD COUNT 11.1 T/MM3 (4.5-11.0)
[2017-01-06 08:54] LABS: ALBUMIN 3.2 G/DL (3.5-5.0); ALBUMIN/GLOBULIN RATIO 1.2 RATIO (1.1-2.2); ALKALINE PHOSPHATASE 260 U/L (38-126); ALT (SGPT) 87 U/L (21-72); ANION GAP 12 MEQ/L (5-15); AST (SGOT) 151 U/L (17-59); BUN/CREATININE RATIO 41 RATIO (6-26); CALCIUM 9.9 MG/DL (8.4-10.2); CHLORIDE 99 MEQ/L (98-107); CO2 - CARBON DIOXIDE 28 MEQ/L (22-30); CREATININE 0.8 MG/DL (0.8-1.5); GLOMERULAR FILTRATION RATE 97; GLUCOSE 198 MG/DL (75-110); POTASSIUM 4.2 MEQ/L (3.6-5); SODIUM 139 MEQ/L (134-144); TOTAL PROTEIN 5.9 G/DL (6.3-8.2)
[2017-01-06 09:06] LABS: ANISOCYTOSIS 1+; BAND NEUTROPHILS # 0.2 T/MM3; LYMPHOCYTES # (MANUAL) 0.6 T/MM3 (1-4.8); MONOCYTES # (MANUAL) 0.6 T/MM3 (0-0.8); NEUTROPHILS #(MANUAL)-ABSOLUTE 9.8 T/MM3 (1.8-7.7); POIKILOCYTOSIS 1+; TOTAL CELLS COUNTED 100 %
== END ==
LOC: IMA 08:23 → EEVIPCON 08:23
PROVIDERS: ATTEND Radiology Radiation Oncology
DX: C34.11 Malignant neoplasm of upper lobe, right bronchus or lung (principal)
CPT/HCPCS: 36415; 80053; 85025

== ENCOUNTER → 2017-01-07 | Outpatient (CLI) | payer MEDICARE, OTHER ==
--- NOTE | 2017-01-07 10:19 | DI ---
Indication: ITS.REASON: C79.31 Secondary malignant neoplasm of brain Comparison: MRI dated December 31, 2016 PROCEDURE: CT of the head without contrast. Technique: Axial CT images were performed through the head without intravenous contrast. Coronal and sagittal two-dimensional reformats. Automated Exposure Control and Iterative Reconstruction dose lowering techniques were utilized. Findings: Exam is performed for radiation therapy treatment planning purposes. No acute intracranial hemorrhage, midline shift or obvious territorial stroke. These small metastatic lesions seen on MRI are not visible by CT. Mild atrophy. Bone windows show no new findings. Impression: Recent therapy treatment planning exam as above. .
== END ==
LOC: IMA 09:45
PROVIDERS: ATTEND Radiology Radiation Oncology
DX: C79.31 Secondary malignant neoplasm of brain (principal)

== ENCOUNTER 2017-01-08 15:30 | Outpatient (CLI) | payer MEDICARE, OTHER ==
[~2017-01-08] VITALS: Ht 175.3 cm; Wt 99.1 kg
[2017-01-08] VITALS (7 sets, daily range): BP systolic 127–144; BP diastolic 60–74; PULSE 85–98; RESP 18–20; TEMP 96.2; O2SAT 90–98; Ht 175.3 cm; Wt 99.1 kg
[~2017-01-08 15:30] MED LIST changes: -ACET325T51 PO; -ALLO300T2 PO; -AMOX875T2 PO; -FENT1PAT65 TOP; -METO-230 PO
--- NOTE | 2017-01-08 16:03 | DI ---
INDICATION: ITS.REASON: C34.11 LUNG CA; R06.02 SOB PROCEDURE: CHEST 2-VIEWS UPRIGHT (PA \T\ LAT) Encounter: Initial COMPARISON: Chest x-ray and chest CT dated December 31, 2016 FINDINGS: Continued airspace consolidation and mass in the right lung. There is obscuration of the right hemidiaphragm and at least a small right pleural effusion. The degree of pleural fluid versus consolidated atelectatic lung is difficult to determine. The overall appearance is similar to the prior study which was immediately following thoracentesis. There is no visible pneumothorax. Left lung is grossly clear. Left mediastinal border and left cardiac border are unchanged. Right heart border is obscured. Impression: Overall stable appearance of the chest with consolidated right lung and at least a small right effusion. .
[2017-01-08] MEDS ORDERED: AMOX875T2 PO (16:39)
[2017-01-08] MEDS ORDERED: ACET325T51 PO (16:39)
[2017-01-08] MEDS ORDERED: ALLO300T2 PO (16:39)
[2017-01-08] MEDS ORDERED: FENT1PAT65 TOP (16:39)
[2017-01-08] MEDS ORDERED: METO-230 PO (16:39)
--- NOTE | 2017-01-08 16:49 | DI ---
Indication:ITS.REASON: PLEURAL EFF Ordering physician:Chema Bunn MD Procedure:US THORACENTESIS THORACENTESIS: After discussing the details of the procedure, including the risks, the patient wished to proceed. Informed consent was obtained. A preprocedural timeout was performed to confirm the correct patient and procedure. Using aseptic technique, local lidocaine anesthetic, and ultrasound guidance throughout, a right-sided thoracentesis was performed using a posterolateral approach. 500 cc of straw-colored fluid was removed from the right hemithorax and discarded. The patient tolerated this procedure well. Following this, the patient was taken back to his recovery room for continued monitoring. Impression: Successful right-sided thoracentesis performed with 500 cc of fluid removed. Hair Webster RPA/ZACH performed this under my personal supervision. .
[2017-01-08] MEDS ORDERED: ACETAMINOPHEN 325 MG TABLET PO PRN (17:00)
[2017-01-08] MEDS ORDERED: MORPHINE SULFATE 4 MG SYRINGE IV PRN (17:00)
== END 2017-01-08 17:57 | disposition home or self-care (01) ==
LOC: IMA.BED 15:30 → EEVIPCON 15:30 → SRG 15:30 → IMA.BED 17:57
PROVIDERS: ATTEND Radiology Diagnostic Radiology
DX: C34.11 Malignant neoplasm of upper lobe, right bronchus or lung (principal); J90 Pleural effusion, not elsewhere classified; R06.02 Shortness of breath
CPT/HCPCS: 32555

== ENCOUNTER → 2017-01-15 | Outpatient (CLI) | payer MEDICARE, OTHER ==
[~2017-01-15] MED LIST changes: +ACET325T51 PO; +ALLO300T2 PO; +AMOX875T2 PO; +FENT1PAT65 TOP; +METO-230 PO
--- NOTE | 2017-01-15 14:47 | DI ---
INDICATION: ITS.REASON: C34.90 BRONCHUS CA; C34.11 LUNG CA; R06.02 SOB;M54.5 LBP PROCEDURE: CHEST 2-VIEWS UPRIGHT (PA \T\ LAT) Encounter: Initial COMPARISON: January 08, 2017 FINDINGS: Aeration of the right lung has improved. Right pleural effusion has nearly resolved. There is persistent right lower lobe airspace opacity with right upper lung field mass and scattered consolidation. No pneumothorax. Left lung is clear. Heart size and mediastinal contours are stable. Pulmonary vascularity is grossly normal. Right IJ port catheter. Impression: Improving aeration of the right lung with some residual lower lobe airspace disease. .
--- NOTE | 2017-01-15 15:38 | DI ---
Indication: ITS.REASON: R18.8 ASCITES;D64.89 ANEMIA; C79.51 BONE CA;C79.31 BRAIN CA; PROCEDURE: US ABDOMEN LIMITED: Encounter: Initial Comparison: None Technique: Grayscale sonographic imaging of the abdomen was performed. Findings: Small amount of perihepatic ascites noted in the right upper quadrant. Trace fluid in the lower quadrants. No fluid seen in the left upper quadrant. Impression: Minimal ascites, below the typical threshold for a therapeutic paracentesis. .
== END ==
LOC: IMA 14:16
PROVIDERS: ATTEND Internal Medicine Medical Oncology
DX: C34.11 Malignant neoplasm of upper lobe, right bronchus or lung (principal); C77.1 Secondary and unspecified malignant neoplasm of intrathoracic lymph nodes; C79.31 Secondary malignant neoplasm of brain; C79.51 Secondary malignant neoplasm of bone; D64.89 Other specified anemias; R06.02 Shortness of breath; M54.5 Low back pain; R18.8 Other ascites